=== PATIENT | female | born 2000 | race Caucasian/White ===

== ENCOUNTER 2019-12-15 08:32 | Emergency (ER) | payer BC, SELFPAY ==
[2019-12-15 08:32] VITALS: BP 135/95
[2019-12-15 08:38] VITALS: BP 138/95; PULSE 76; RESP 18; TEMP 36.5; O2SAT 100; BMI 40.7
--- NOTE | 2019-12-15 08:39 | W.ED.CHESTPA ---
HPI - Chest Pain General: Chief Complaint: Chest Pain Stated Complaint: Chest pain/Sob Time Seen by Provider: 12/15/19 08:39 Source: patient Mode of arrival: ambulatory Limitations: no limitations History of Present Illness: HPI narrative: Patient comes in today with complaints of chest pressure and shortness of breath for the last 3 days. Patient also reports some nausea but no vomiting. Patient denies any fever. Patient does report exposure to the flu. Patient looks mildly unwell. Patient looks in no pain. Review of Systems General: Reports: 10 or more systems reviewed and unremarkable except in HPI and below Card: Reports: chest pain PFS ED PFSH: Statuses (acute, chronic, etc) shown below reflect problem list status as previously entered and may not be historically accurate Social History Smoking and tobacco status: never smoked Current gender identity: Female Physical Exam Const: COMMON NORMALS: no apparent distress and oriented x3 GENERAL APPEARANCE: cooperative HENMT: COMMON NORMALS: normocephalic, external ears normal, EAC's normal, TM's normal bilaterally and external nose normal HEAD & SCALP: normal to inspection and normocephalic FACE & SINUS: normal facial exam NOSE: external nose normal GENERAL EAR: hearing not grossly impaired EXTERNAL EAR: Yes external ears normal EXTERNAL AUDITORY CANAL: EAC's normal TYMPANIC MEMBRANE: TM's normal bilaterally MOUTH: oral and palatal mucosa normal THROAT: posterior oropharynx normal Eye: COMMON NORMALS: PERRL and EOMs intact bilaterally PUPIL: Yes PERRL Neck/C-Spine: COMMON NORMALS: full ROM and no lymphadenopathy Lymph: LYMPHATIC: no lymphedema noted Chest: COMMONS NORMALS: inspection of chest normal and palpation of chest normal Resp: COMMON NORMALS: normal respiratory effort and clear to auscultation bilaterally AUSCULTATION: clear to auscultation bilaterally Cardio: COMMON NORMALS: regular rate and regular rhythm RATE: regular rate RHYTHM: regular rhythm GI: COMMON NORMALS: normal to inspection, nondistended, normoactive bowel sounds and non-tender : COMMON NORMALS: Yes no CVA tenderness BLADDER/KIDNEY EXAM: Yes no CVA tenderness Back/Pelvis: COMMON NORMALS: no CVA tenderness and thoracic and lumbar spine normal to inspection Extremity: COMMON NORMALS: normal to inspection GENERAL: No edema Neuro: COMMON NORMALS: oriented x3, moves all extremities and no focal motor deficits Psych: COMMON NORMALS: mental status grossly normal and cooperative Skin: COMMON NORMALS: no rashes or lesions noted GENERAL SKIN EXAM: no rashes or lesions noted Course Vital Signs: Vital signs: Vital Signs Temperature 97.7 F 12/15/19 08:38 Pulse Rate 85 12/15/19 09:34 Respiratory Rate 16 12/15/19 10:00 Blood Pressure 135/95 12/15/19 09:34 Pulse Oximetry 99 12/15/19 09:34 MDM - Chest Pain MDM Narrative: Medical decision making narrative: Patient comes in today with complaints of chest pain. Exam notes respirations are even lungs are clear to auscultation. Abdomen soft nontender. Chest wall is nontender to palpation. Skin is warm and dry color is pink. Vital signs are stable. Differential diagnosis includes ACS, pneumonia, pleurisy, viral syndrome, DVT, PE, anxiety, malingering, gallbladder disease. Laboratory values were normal. Troponin was negative. D-dimer was negative. Chest x-ray was normal. EKG was normal. Patient was given a GI cocktail with minimal relief except for throat pain was resolved. Believe the patient probably has a viral syndrome this might be causing some pleuritic pain. Recommended patient take a dose of dexamethasone and continue with Tylenol and ibuprofen and Zofran for sore supportive care. Patient reports understanding agreed with plan. Lab Data: Labs: Lab Results 12/15/19 12/15/19 12/15/19 Range/Units 08:57 08:57 08:57 WBC 6.7 (4.0-10.0) 10^3/ uL RBC 4.46 (4.1-5.3) 10^6/u L Hgb 13.2 (11.5-15.3) g/dL Hct 41.3 (37.0-47.0) % MCV 92.6 (81-99) fL MCH 29.6 (28.0-34.0) pg MCHC 32.0 (30.0-36.0) g/dL RDW 13.3 (12.1-15.1) % Plt Count 249 (130-400) 10^3/c mm MPV 12.0 H (7.4-10.4) fL Neut % (Auto) 45.6 % Lymph % (Auto) 42.7 % [place] % (Auto) 8.8 % Eos % (Auto) 2.2 % Baso % (Auto) 0.4 % Neut # (Auto) 3.1 (1.8-7.7) 10^3/u L Lymph # (Auto) 2.9 (0.8-4.8) 10^3/u L [place] # (Auto) 0.6 (0.2-0.9) 10^3/u L Eos # (Auto) 0.2 (0.0-0.8) 10^3/u L Baso # (Auto) 0.0 (0.0-0.1) 10^3/u L Nucleated RBC % (a uto) 0 % Nucleated RBCs # 0.0 /100WBC D-Dimer <= 0.27 (0-0.59) ug/mIFE U Sodium 139 (136-145) mmol/L Potassium 4.0 (3.5-5.1) mmol/L Chloride 100 (98-107) mmol/L Carbon Dioxide 24 (22-29) mmol/L Anion Gap 19.0 (5-19) BUN 9 (6-20) mg/dL Creatinine 0.6 (0.5-0.9) mg/dL GFR Calculation 126.2 (90-130) mL/min Glucose 90 (65-115) mg/dL Calcium 9.9 (8.5-10.5) mg/dL Total Bilirubin 0.2 (0.15-1.2) mg/dL AST 26 (0-32) U/L ALT 30 (0-33) U/L Alkaline Phosphata se 64 (35-105) IU/L Troponin T Baselin e (0-10) ng/mL Total Protein 7.2 (6.6-8.7) g/dL Albumin 4.4 (3.5-5.2) g/dL Globulin 2.8 (1.3-4.6) g/dL Urine Color (Yellow) Urine Appearance (CLEAR) Urine pH (5-7) Ur Specific Gravit y (1.005-1.030) Urine Protein (Negative) Urine Glucose (UA) (Normal) Urine Ketones (Negative) Urine Occult Blood (Negative) Urine Nitrate (Negative) Urine Bilirubin (NEGATIVE) Urine Urobilinogen (Negative) mg/dL Ur Leukocyte Shavon ase (Negative) Urine HCG, Qual (Negative) Valproic Acid 104.4 H (50-100) mcg/mL Influenza Type A A g (Negative) POC Influenza B Ag (Negative) 12/15/19 12/15/19 12/15/19 Range/Units 08:57 09:32 10:16 WBC (4.0-10.0) 10^3/ uL RBC (4.1-5.3) 10^6/u L Hgb (11.5-15.3) g/dL Hct (37.0-47.0) % MCV (81-99) fL MCH (28.0-34.0) pg MCHC (30.0-36.0) g/dL RDW (12.1-15.1) % Plt Count (130-400) 10^3/c mm MPV (7.4-10.4) fL Neut % (Auto) % Lymph % (Auto) % [place] % (Auto) % Eos % (Auto) % Baso % (Auto) % Neut # (Auto) (1.8-7.7) 10^3/u L Lymph # (Auto) (0.8-4.8) 10^3/u L [place] # (Auto) (0.2-0.9) 10^3/u L Eos # (Auto) (0.0-0.8) 10^3/u L Baso # (Auto) (0.0-0.1) 10^3/u L Nucleated RBC % (a uto) % Nucleated RBCs # /100WBC D-Dimer (0-0.59) ug/mIFE U Sodium (136-145) mmol/L Potassium (3.5-5.1) mmol/L Chloride (98-107) mmol/L Carbon Dioxide (22-29) mmol/L Anion Gap (5-19) BUN (6-20) mg/dL Creatinine (0.5-0.9) mg/dL GFR Calculation (90-130) mL/min Glucose (65-115) mg/dL Calcium (8.5-10.5) mg/dL Total Bilirubin (0.15-1.2) mg/dL AST (0-32) U/L ALT (0-33) U/L Alkaline Phosphata se (35-105) IU/L Troponin T Baselin e 6 (0-10) ng/mL Total Protein (6.6-8.7) g/dL Albumin (3.5-5.2) g/dL Globulin (1.3-4.6) g/dL Urine Color (Yellow) Urine Appearance (CLEAR) Urine pH (5-7) Ur Specific Gravit y (1.005-1.030) Urine Protein (Negative) Urine Glucose (UA) (Normal) Urine Ketones (Negative) Urine Occult Blood (Negative) Urine Nitrate (Negative) Urine Bilirubin (NEGATIVE) Urine Urobilinogen (Negative) mg/dL Ur Leukocyte Shavon ase (Negative) Urine HCG, Qual Negative (Negative) Valproic Acid (50-100) mcg/mL Influenza Type A A g Negative (Negative) POC Influenza B Ag Negative (Negative) 12/15/19 Range/Units 10:16 WBC (4.0-10.0) 10^3/ uL RBC (4.1-5.3) 10^6/u L Hgb (11.5-15.3) g/dL Hct (37.0-47.0) % MCV (81-99) fL MCH (28.0-34.0) pg MCHC (30.0-36.0) g/dL RDW (12.1-15.1) % Plt Count (130-400) 10^3/c mm MPV (7.4-10.4) fL Neut % (Auto) % Lymph % (Auto) % [place] % (Auto) % Eos % (Auto) % Baso % (Auto) % Neut # (Auto) (1.8-7.7) 10^3/u L Lymph # (Auto) (0.8-4.8) 10^3/u L [place] # (Auto) (0.2-0.9) 10^3/u L Eos # (Auto) (0.0-0.8) 10^3/u L Baso # (Auto) (0.0-0.1) 10^3/u L Nucleated RBC % (a uto) % Nucleated RBCs # /100WBC D-Dimer (0-0.59) ug/mIFE U Sodium (136-145) mmol/L Potassium (3.5-5.1) mmol/L Chloride (98-107) mmol/L Carbon Dioxide (22-29) mmol/L Anion Gap (5-19) BUN (6-20) mg/dL Creatinine (0.5-0.9) mg/dL GFR Calculation (90-130) mL/min Glucose (65-115) mg/dL Calcium (8.5-10.5) mg/dL Total Bilirubin (0.15-1.2) mg/dL AST (0-32) U/L ALT (0-33) U/L Alkaline Phosphata se (35-105) IU/L Troponin T Baselin e (0-10) ng/mL Total Protein (6.6-8.7) g/dL Albumin (3.5-5.2) g/dL Globulin (1.3-4.6) g/dL Urine Color Straw (Yellow) Urine Appearance Clear (CLEAR) Urine pH 6.5 (5-7) Ur Specific Gravit y 1.010 (1.005-1.030) Urine Protein Neg (Negative) Urine Glucose (UA) Norm (Normal) Urine Ketones Negative (Negative) Urine Occult Blood Neg (Negative) Urine Nitrate Negative (Negative) Urine Bilirubin Neg (NEGATIVE) Urine Urobilinogen Norm (Negative) mg/dL Ur Leukocyte Shavon ase Negative (Negative) Urine HCG, Qual (Negative) Valproic Acid (50-100) mcg/mL Influenza Type A A g (Negative) POC Influenza B Ag (Negative) EKG Data^: EKG 1: Attestation: I personally reviewed and interpreted this EKG as follows: (1039, NSR no ectopy, rate 60 and regular, no ectopy, no ST elevation) EKG 2: Attestation: I personally reviewed and interpreted this EKG as follows: (0852, NSR, regular rate and rhythm, 69 bpm, no ectopy or ST elevation) Discharge Plan Discharge Patient Disposition: Home, Self-Care Clinical Impression: Atypical chest pain, Acute viral syndrome Condition: Stable Prescriptions: New ondansetron HCl 4 mg tablet 4 mg PO Q8H PRN (Reason: nausea and vomiting) Qty: 10 RF: 0 ibuprofen 800 mg tablet 800 mg PO Q8H PRN (Reason: pain) Qty: 20 RF: 0 No Action divalproex [Depakote] 500 mg tablet,delayed release (DR/EC) 500 mg PO BID RF: 0 Discharge Orders: Discharge Order (Routine); Ordered 12/15/19 Ordered By: Arturo Rodrigez Referrals: Mario Soliz MD [Primary Care Provider] - Discharge Diet: Usual diet Discharge Activity: Increase activity as tolerated Patient Instructions: Chest Pain - Chest Wall Activity Restrictions/Additional Instructions: Drink plenty of fluids Acetaminophen and ibuprofen for pain Ondansetron for nausea Follow-up with primary care in three days for recheck Return to ER for high fever and increased shortness of breath Coding Level of Care Code 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
--- NOTE | 2019-12-15 08:46 | XR_ITS ---
WS: [id number] Portable AP upright chest, 12/15/2019 Clinical Data: short of breath Comparison: Portable chest, 08/23/2017. Findings: No nodules, masses or effusions are seen. The heart is normal. The pulmonary vascularity is not increased. No pneumonia or pneumothorax is seen. XR/XR chest 1V portable 60005 Impression: Negative chest.
--- NOTE | 2019-12-15 08:46 | ECG_ITS ---
Measurements Intervals [place] Rate: 69 P: 34 [place]: 131 QRS: 19 QRSD: 85 T: 25 QT: 375 QTc: 403 SINUS RHYTHM WITH SINUS ARRHYTHMIA Compared to ECG 08/24/2017 01:57:04 No significant changes Electronically Signed On 12-15-2019 22:16:16 DIRECTOR OF ANALYTICS by Ajith Foote M.D. [id number]
[2019-12-15 09:08] LABS: Basophils % 0.4 %; Eosinophils # 0.2 10^3/uL (0.0-0.8); Eosinophils % 2.2 %; Hematocrit 41.3 % (37.0-47.0); Hemoglobin 13.2 g/dL (11.5-15.3); Lymphocytes # 2.9 10^3/uL (0.8-4.8); Lymphocytes % 42.7 %; Mean Corpuscular Hemoglobin 29.6 pg (28.0-34.0); Mean Corpuscular Volume 92.6 fL (81-99); Monocytes # 0.6 10^3/uL (0.2-0.9); Monocytes % 8.8 %; Neutrophils # 3.1 10^3/uL (1.8-7.7); Neutrophils % 45.6 %; Nucleated Red Blood Cells % 0 %; Platelet Count 249 10^3/cmm (130-400); Red Blood Count 4.46 10^6/uL (4.1-5.3); Red Cell Distribution Width 13.3 % (12.1-15.1); White Blood Count 6.7 10^3/uL (4.0-10.0)
[2019-12-15 09:33] LABS: Alanine Aminotransferase 30 U/L (0-33); Albumin Level 4.4 g/dL (3.5-5.2); Alkaline Phosphatase 64 IU/L (35-105); Aspartate Amino Transferase 26 U/L (0-32); Blood Urea Nitrogen 9 mg/dL (6-20); Calcium 9.9 mg/dL (8.5-10.5); Carbon Dioxide 24 mmol/L (22-29); Chloride 100 mmol/L (98-107); Globulin 2.8 g/dL (1.3-4.6); Glomerular Filtration Rate 126.2 mL/min (90-130); Glucose 90 mg/dL (65-115); Sodium 139 mmol/L (136-145); Total Bilirubin 0.2 mg/dL (0.15-1.2); Total Protein 7.2 g/dL (6.6-8.7)
[2019-12-15 09:34] VITALS: BP 135/95; PULSE 85; RESP 16; O2SAT 99
[2019-12-15 09:35] LABS: Troponin(5th) Baseline 6 ng/mL (0-10)
[2019-12-15 10:00] VITALS: RESP 16
[2019-12-15 10:05] LABS: Valproic Acid Level 104.4 mcg/mL (50-100)
[2019-12-15 10:10] LABS: D Dimer <= 0.27 ug/mIFEU (0-0.59)
[2019-12-15 10:15] LABS: Influenza A by IFA Negative (Negative); Influenza B by IFA Negative (Negative)
[2019-12-15 10:19] LABS: Add Urine Microscopic? NO
[2019-12-15 10:29] LABS: Bilirubin Urine Neg (NEGATIVE); Blood Urine Neg (Negative); Glucose Urine UA Norm (Normal); Ketones Urine Negative (Negative); Leukocyte Esterase Urine Negative (Negative); Nitrate Urine Negative (Negative); Protein Urine Neg (Negative); Urine Appearance Clear (CLEAR); Urine Color Straw (Yellow); Urobilinogen Urine Norm (Negative); pH Urine 6.5 (5-7)
[2019-12-15] MEDS: dexamethasone 10 mg/mL INJ IM (10:53)
[2019-12-15] MEDS: ondansetron 4 MG Tablet PO (10:53)
[2019-12-15 10:55] VITALS: BP 112/81; PULSE 73; RESP 16; O2SAT 96
--- NOTE | 2019-12-15 14:46 | ECG_ITS ---
Measurements Intervals [place] Rate: 60 P: 26 ND: 127 QRS: 35 QRSD: 89 T: 35 QT: 405 QTc: 407 SINUS RHYTHM Compared to ECG 08/24/2017 01:57:04 No significant changes Electronically Signed On 12-15-2019 22:18:58 RECEIVING AND PROCESSING SUPERVISOR by Ajith Foote M.D. [id number]
== END 2019-12-15 10:55 | disposition home or self-care (01) ==
PROVIDERS: Emergency Provider Nurse Practitioner Family; Family Provider Family Medicine; PCP Family Medicine
DX: R07.89 Other chest pain (principal); B34.9 Viral infection, unspecified
CPT/HCPCS: 71045; 80053; 80164; 81003; 81025; 84484; 85025; 85378; 87804; 93005; 96372; 99283; A9270; J1100; Q0162

== ENCOUNTER → 2020-03-11 15:20 | Outpatient (BNVA) | payer BC, SELFPAY | PROVIDERS: Family Provider Family Medicine; PCP Family Medicine; Visit Provider Specialist | DX: G40.309 Generalized idiopathic epilepsy and epileptic syndromes, not intractable, without status epilepticus (principal) | CPT/HCPCS: 99213 ==

== ENCOUNTER → 2020-07-02 10:41 | Outpatient (BNVA) | payer BC, SELFPAY | PROVIDERS: Family Provider Family Medicine; PCP Family Medicine; Visit Provider Specialist | DX: G40.A09 Absence epileptic syndrome, not intractable, without status epilepticus (principal) | CPT/HCPCS: 99214 ==

== ENCOUNTER 2020-07-10 10:01 | Outpatient (CLI) | payer BC, MEDICAID, SELFPAY ==
--- NOTE | 2020-07-10 10:07 | US_ITS ---
WS: [id number] EARLY OBSTETRICAL ULTRASOUND (<14 WEEKS). HISTORY: DATING COMPARISON: None available. There is an elongated intrauterine gestational sac. Sac is elongated towards the cervix and misshapen ed. Gestational sac mean diameter of 3.3 cm corresponds to a gestational age of 10 weeks and 2 days. There is no identifiable intrauterine pole or cardiac activity. There are a few septations with in the sac which are probably an abnormal yolk sac and amnion. The cervix is closed. Thick wall hypoechoic mass in the LEFT ovary is probably a corpus luteum cyst m easuring 2.1 x 2.1 x 1.7 cm. Mild increased peripheral vascularity. US/US OB <=14 wk fetus w transvag IMPRESSION: 1. No intrauterine gestational sac identified. 2. Abnormal gestational sac is elongated. Mean sac diameter corresponds to ges tation of 10 weeks and 2 days. Most consistent with anembryonic demise. 3. LEFT ovarian hypoechoic mass is probably a corpus luteum. Without visualizi ng an intrauterine gestation cannot completely exclude ectopic . Corre late with decreasing beta hCG levels.
--- NOTE | 2020-07-10 10:07 | US_ITS ---
WS: [id number] RIGHT UPPER QUADRANT ULTRASOUND HISTORY: LIVER MASS COMPARISON: CT 12/08/2015 and MRI 12/25/2015 Liver: 13.3 cm in length. Liver is normal size. There is mild increased echogenicity in the posterior RIGHT lobe of the liver which corresponds to the mass which is been previous the described. Margins are poorly defined but this mass measures approximately 8.4 x 5.0 x 5.3 cm. Gallbladder: Normally distended gallbladder with no stones or wall thickening. CBD: 0.6 cm Pancreas: Normal size and echogenicity. Right kidney: 11.6 cm in length. Normal size and echogenicity. No hydronephrosis. Aorta and IVC: Unremarkable abdominal aorta and IVC. No ascites. US/US gall bladder 29620 IMPRESSION: 1. Large ill-defined hyperechoic mass in the RIGHT lobe of the liver. As this mass is ill-defined measurements are difficult to obtain. Mass measures at leas t 8.4 x 5.0 x 5.3 cm. Present since 2015 with no obvious enlargement. 2. Negative gallbladder.
== END 2020-07-10 10:02 | disposition home or self-care (01) ==
LOC: US 10:02
PROVIDERS: PCP Family Medicine; Visit Provider Family Medicine
DX: K76.89 Other specified diseases of liver (principal); O28.3 Abnormal ultrasonic finding on antenatal screening of mother
CPT/HCPCS: 76705; 76801; 76817

== ENCOUNTER 2020-08-28 00:51 | Emergency (ER) | payer BC, MEDICAID, SELFPAY ==
[2020-08-28 00:56] VITALS: BP 144/92; PULSE 75; RESP 16; TEMP 36.2; O2SAT 100; BMI 39.3
--- NOTE | 2020-08-28 01:06 | W.ED.PREGNAN ---
HPI - General: Chief complaint: Vaginal Bleeding Stated complaint: vaginal bleeding Time Seen by Provider: 08/28/20 00:52 Source: patient Mode of arrival: ambulatory Limitations: no limitations History of Present Illness: HPI Narrative: 20-year-old female who states she has been having lower abdominal cramping along with vaginal bleeding over the last 3 to 4 days. Patient had her blood drawn yesterday at Dr. Soliz does not have the results. She had a early in July and had an ultrasound and showed an empty gestational sac. She states that she started having bleeding 3 to 4 days ago and is increased in heaviness and believes that she may be still her again. She denies any vomiting or diarrhea. Denies any lightheadedness. Complaint: abdominal pain and vaginal bleeding Onset (ago): day(s) Associated symptoms: Reports abdominal pain; Deny headache(s) Review of Systems Const: Denies: fever(s), chills, body aches or change in appetite Eyes: Denies: blurry vision or eye discomfort ENMT: Denies: throat pain or dental pain Card: Denies: chest pain Resp: Denies: dyspnea GI: Reports: abdominal pain : Reports: vaginal bleeding Musc: Denies: neck pain or back pain Skin/Breast: Denies: rash Neuro: Denies: headache(s) Psych: Denies: depression Jose/Lymph: Denies: easy bruising All/Imm: Denies: urticaria PFSH ED PFSH: Family History Other Diabetes Social History Smoking and tobacco status: never smoked Current gender identity: Female Physical Exam Const: COMMON NORMALS: no acute distress, patient oriented x3 and healthy appearing HENMT: COMMON NORMALS: normocephalic and atraumatic HEAD & SCALP: normocephalic and atraumatic Eye: COMMON NORMALS: Equal, round and reactive pupils present and EOMs intact bilaterally PUPIL: Yes Equal, round and reactive pupils present Neck/C-Spine: COMMON NORMALS: full ROM and supple Chest: COMMONS NORMALS: normal inspection of the chest and normal palpation of entire chest wall Resp: COMMON NORMALS: normal respiratory effort, No retractions, No use of accessory muscles and clear to auscultation bilaterally AUSCULTATION: clear to auscultation bilaterally Cardio: COMMON NORMALS: regular rate, regular rhythm and No murmurs present (Cardio) RATE: regular rate RHYTHM: regular rhythm GI: COMMON NORMALS: Normal to inspection, nondistended, normoactive bowel sounds present, Soft to palpation, non-tender and no masses PALPATION: Yes Soft to palpation Extremity: COMMON NORMALS: normal to inspection and full ROM Neuro: COMMON NORMALS: patient oriented x3, moves all extremities and no focal motor deficits Psych: COMMON NORMALS: mental status grossly normal, Normal thought process present and cooperative THOUGHT PROCESS: Normal thought process present Skin: COMMON NORMALS: no rashes or lesions noted and no wounds GENERAL SKIN EXAM: no rashes or lesions noted Course Vital Signs: Vital signs: Vital Signs Temperature 97.2 F L 08/28/20 00:56 Pulse Rate 75 08/28/20 00:56 Respiratory Rate 16 08/28/20 00:56 Blood Pressure 144/92 08/28/20 00:56 Pulse Oximetry 100 08/28/20 00:56 MDM - OB/Uterine Contractions MDM Narrative: Medical decision making narrative: Patient presents with a likely miscarriage. Patient's ultrasound showed no ectopic. Patient is well-appearing here and has no excessive bleeding. She is stable for discharge to follow-up with her PCP in 2 to 4 days and return if worsening. Lab Data: Labs: Lab Results 08/28/20 08/28/20 08/28/20 Range/Units 01:35 01:35 01:35 WBC 11.0 H (4.0-10.0) 10^3/ uL RBC 4.40 (4.1-5.3) 10^6/u L Hgb 14.0 (11.5-15.3) g/dL Hct 41.7 (37.0-47.0) % MCV 94.8 (81-99) fL MCH 31.8 (28.0-34.0) pg MCHC 33.6 (30.0-36.0) g/dL RDW 11.9 L (12.1-15.1) % Plt Count 268 (130-400) 10^3/c mm MPV 11.6 H (7.4-10.4) fL Neut % (Auto) 63.0 % Lymph % (Auto) 28.6 % [place] % (Auto) 5.6 % Eos % (Auto) 2.0 % Baso % (Auto) 0.5 % Neut # (Auto) 6.93 (1.8-7.7) 10^3/u L Lymph # (Auto) 3.1 (0.8-4.8) 10^3/u L [place] # (Auto) 0.6 (0.2-0.9) 10^3/u L Eos # (Auto) 0.2 (0.0-0.8) 10^3/u L Baso # (Auto) 0.1 (0.0-0.1) 10^3/u L Nucleated RBC % (a uto) 0 % Nucleated RBCs # 0.0 /100WBC Ser , Abigail i-Qnt 01607.00 mIU/mL Rho(D) Type Positive Imaging Data^: US OB: Attestation: I personally reviewed and interpreted this imaging study as follows: My impression: Gestational sac noted with no definite IUP. No signs of ectopic . Discharge Plan Discharge Patient Disposition: Home Clinical Impression: Threatened Condition: Stable Prescriptions: [place] 5-325 mg tablet 1 tab PO Q6H PRN (Reason: pain) Qty: 14 RF: 0 No Action divalproex [Depakote] 500 mg tablet,delayed release (DR/EC) 500 mg PO BID Qty: 180 RF: 3 Discharge Orders: Discharge Order (Routine); Ordered 08/28/20 Ordered By: Lisa Escamilla Referrals: Mario Soliz MD [Primary Care Provider] - 1-3 days Discharge Diet: Advance as tolerated Discharge Activity: Resume usual activity Patient Instructions: Threatened Miscarriage (ED) Stand Alone Forms: Work/School Release Coding Level of Care Code ED Reading Professor for Chg Fwd Exam Comprehensive
[2020-08-28] MEDS: HYDROcodone-acetaminophen 7.5-325 mg Tablet 1 TAB PO (02:07)
[2020-08-28 02:24] LABS: Basophils # 0.1 10^3/uL (0.0-0.1); Basophils % 0.5 %; Eosinophils # 0.2 10^3/uL (0.0-0.8); Hematocrit 41.7 % (37.0-47.0); Lymphocytes # 3.1 10^3/uL (0.8-4.8); Lymphocytes % 28.6 %; Mean Corpuscular HGB Conc 33.6 g/dL (30.0-36.0); Mean Corpuscular Hemoglobin 31.8 pg (28.0-34.0); Mean Corpuscular Volume 94.8 fL (81-99); Mean Platelet Volume 11.6 fL (7.4-10.4); Monocytes # 0.6 10^3/uL (0.2-0.9); Monocytes % 5.6 %; Neutrophils # 6.93 10^3/uL (1.8-7.7); Nucleated Red Blood Cells % 0 %; Platelet Count 268 10^3/cmm (130-400); Red Cell Distribution Width 11.9 % (12.1-15.1)
--- NOTE | 2020-08-28 02:53 | US_ITS ---
WS: [id number] ULTRASOUND PELVIS TECHNIQUE: Transabdominal. CLINICAL INFORMATION: threatened miscarriage LMP: 04/25/2020 : No. COMPARISON: July 10, 2020 FINDINGS: Fluid within the endometrial and endocervical canal. Uterus Orientation: Anteverted. Size: 5.7 cm x 13.7 cm x 6.8 cm Masses: None. Cervix: Fluid in the endocervical canal Endometrium: Thickened Endometrium thickness: 23 mm. Adnexa: Normal. Right ovary size: 3.2 cm x 1.8 cm x 1.2 cm. Right ovary volume: 3.6 ccm3 Left ovary size: 4.5 cm x 2.6 cm x 1.9 cm. Left ovary volume: 11.3 ccm3 Free fluid: None. Other findings: None. US/ OB limited [id number] IMPRESSION: 1. Fluid in the uterus and endocervical canal. 2. Thickened endometrium measuring 23 mm. 3. Adnexa are normal. 4. No free fluid in the cul-de-sac.
[2020-08-28 04:14] VITALS: BP 121/78; PULSE 74; RESP 16; O2SAT 100
== END 2020-08-28 04:15 | disposition home or self-care (01) ==
PROVIDERS: Emergency Provider Emergency Medicine; PCP Family Medicine
DX: O20.0 Threatened abortion (principal); Z3A.00 Weeks of gestation of pregnancy not specified
CPT/HCPCS: 12345; 76801; 76815; 84702; 85025; 99283

== ENCOUNTER 2020-08-29 15:28 | Day surgery (SDC) | payer BC, MEDICAID, SELFPAY ==
[2020-08-29] VITALS (10 sets, daily range): BP systolic 109–134; BP diastolic 54–75; PULSE 79–120; RESP 14–24; TEMP 36.4–37.6; O2SAT 96–100; BMI 39.3
--- NOTE | 2020-08-29 16:03 | W.ED.PREGNAN ---
HPI - General: Chief complaint: Vaginal Bleeding Stated complaint: DIFF FOLLOWING MISCARRIAGE/6 WKS AGO Time Seen by Provider: 08/29/20 15:54 History of Present Illness: HPI Narrative: 20-year-old female patient presents to the emergency department with complaints of continued vaginal pressure and bleeding. Recently evaluated in the emergency department 08/28/2020, Diagnosis threatened AB, pelvic ultrasound revealed thickened endometrium, fluid in the cervix and Endo cervical canal.She reports continued bleeding, going through 2 pads an hour. States she feels that something is in there and she cannot get it out. 1, para 0 living 0 AB 1 MD Complaint: vaginal bleeding Onset (ago): day(s) (2) Pain Consistency: intermittent Location: pelvis Severity: mild Severity scale (1-10): 4 Quality: Cramping and Aching Radiation: pelvis Relieving factors: none Exacerbating factors: none Vaginal bleeding: heavy Date of Last Menstrual Period: 04/25/20 Patient : No Associated symptoms: Deny abdominal pain, dysuria, headache(s), nausea or vomiting Review of Systems General: Reports: 10 or more systems reviewed and unremarkable except in HPI and below Const: Denies: fever(s), chills or diaphoresis Eyes: Denies: blurry vision or eye redness ENMT: Denies: throat pain, dental pain or disequilibrium Card: Denies: chest pain, palpitations or irregular heart rhythm Resp: Denies: dyspnea, productive cough, non-productive cough or wheezing GI: Denies: abdominal pain, nausea or vomiting : Reports: vaginal bleeding and pelvic pain; Denies: flank pain, difficulty voiding or dysuria Musc: Denies: back pain Skin/Breast: Denies: rash or pruritus Neuro: Denies: headache(s), weakness in extremities or behavioral changes Jose/Lymph: Denies: easy bruising PFSH ED PFSH: Medical History Epilepsy Reports being diagnosed with epilepsy. has not had a seizure since December 2018. She is managed by Dr. Chi. Surgical History No pertinent past surgical history Family History Other Diabetes Social History Smoking and tobacco status: never smoked Alcohol intake: never Current gender identity: Female Female Reproductive History: Date of last menstrual period: 04/25/20 Physical Exam Const: COMMON NORMALS: no acute distress, patient oriented x3, healthy appearing and alert GENERAL APPEARANCE: cooperative, comfortable and well hydrated HENMT: COMMON NORMALS: normocephalic, Normal external nose present and moist oral mucous membranes HEAD & SCALP: normocephalic NOSE: Normal external nose present Eye: COMMON NORMALS: Equal, round and reactive pupils present and EOMs intact bilaterally GENERAL EYE: appearance normal, both eyes and all related structures PUPIL: Yes Equal, round and reactive pupils present Neck/C-Spine: COMMON NORMALS: full ROM and no lymphadenopathy GENERAL: Yes normal visual inspection and Yes trachea midline CERVICAL SPINE: Yes cervical ROM normal Lymph: LYMPHATIC: no lymphadenopathy noted Chest: COMMONS NORMALS: normal inspection of the chest Resp: COMMON NORMALS: normal respiratory effort and clear to auscultation bilaterally AUSCULTATION: clear to auscultation bilaterally Cardio: COMMON NORMALS: regular rhythm, S1 normal heart sound present and S2 normal heart sound present RHYTHM: regular rhythm HEART SOUNDS: S1 normal heart sound present and S2 normal heart sound present GI: COMMON NORMALS: Soft to palpation and non-tender INSPECTION: Yes normal to inspection PALPATION: Yes Soft to palpation : COMMON NORMALS: Yes no CVA tenderness and Yes normal external appearance BLADDER/KIDNEY EXAM: Yes no CVA tenderness SPECULUM EXAM - VAGINA: Yes tissue present in vagina SPECULUM EXAM - CERVIX: Yes Cervical os open, Yes Tissue present in the cervical os and Yes Cervical bleeding (scant) OB/EXTERNAL & SPECULUM: tissue present in vagina and Cervical os open Back/Pelvis: COMMON NORMALS: no CVA tenderness and thoracic and lumbar spine normal to inspection Extremity: COMMON NORMALS: normal to inspection and capillary refill normal Neuro: COMMON NORMALS: patient oriented x3 and no focal motor deficits SENSORIUM/ORIENTATION: Yes alert Psych: COMMON NORMALS: mental status grossly normal, Normal thought process present and cooperative ACTIVITY/MOTOR BEHAVIOR: Yes appropriate eye contact THOUGHT PROCESS: Normal thought process present Skin: COMMON NORMALS: no rashes or lesions noted and turgor normal GENERAL SKIN EXAM: no rashes or lesions noted and turgor normal Course ED course: Dr Loera in the ED 1730 - plan for pt to go to surgery for OP D & C Consultations: Consultation #1: Dr Soliz - advised to contact CURING SUPERVISOR on-call as patient may need D&C, Time: 16:50 Consultation #2: Dr Loera-Case discussed with Dr. Loera serology and ultrasound reports reviewed, advised patient may need D&C, agrees to come see patient in emergency department. Time: 17:05 Vital Signs: Vital signs: Vital Signs Temperature 98.2 F 08/29/20 19:58 Pulse Rate 93 08/29/20 20:13 Respiratory Rate 16 08/29/20 19:58 Blood Pressure 123/65 08/29/20 20:13 Pulse Oximetry 96 08/29/20 20:13 MDM - OB/Uterine Contractions Lab Data: Labs: Lab Results 08/29/20 08/29/20 08/29/20 Range/Units 16:10 16:10 16:10 WBC 9.3 (4.0-10.0) 10^3/ uL RBC 4.40 (4.1-5.3) 10^6/u L Hgb 13.7 (11.5-15.3) g/dL Hct 40.6 (37.0-47.0) % MCV 92.3 (81-99) fL MCH 31.1 (28.0-34.0) pg MCHC 33.7 (30.0-36.0) g/dL RDW 11.9 L (12.1-15.1) % Plt Count 255 (130-400) 10^3/c mm MPV 11.0 H (7.4-10.4) fL Neut % (Auto) 64.3 % Lymph % (Auto) 27.7 % [place] % (Auto) 5.4 % Eos % (Auto) 1.8 % Baso % (Auto) 0.5 % Neut # (Auto) 6.00 (1.8-7.7) 10^3/u L Lymph # (Auto) 2.6 (0.8-4.8) 10^3/u L [place] # (Auto) 0.5 (0.2-0.9) 10^3/u L Eos # (Auto) 0.2 (0.0-0.8) 10^3/u L Baso # (Auto) 0.1 (0.0-0.1) 10^3/u L Nucleated RBC % (a uto) 0 % Nucleated RBCs # 0.0 /100WBC Sodium 138 (136-145) mmol/L Potassium 4.0 (3.5-5.1) mmol/L Chloride 102 (98-107) mmol/L Carbon Dioxide 24 (22-29) mmol/L Anion Gap 16.0 (5-19) BUN 8 (6-20) mg/dL Creatinine 0.6 (0.5-0.9) mg/dL GFR Calculation 125.0 (90-130) mL/min Glucose 83 (65-115) mg/dL Calculated Osmolal ity 283 L (285-295) mOsm/k g Calcium 10.1 (8.5-10.5) mg/dL Total Bilirubin 0.2 (0.15-1.2) mg/dL AST 16 (0-32) U/L ALT 16 (0-33) U/L Alkaline Phosphata se 76 (35-105) IU/L Total Protein 7.1 (6.6-8.7) g/dL Albumin 4.6 (3.5-5.2) g/dL Globulin 2.5 (1.3-4.6) g/dL Ser , Abigail i-Qnt 3788.00 mIU/mL Discharge Plan Discharge Clinical Impression: Spontaneous in first trimester, Missed Condition: Stable Discharge Orders: Discharge Order (Routine); Ordered 08/29/20 Ordered By: Ashish Loera Discharge Date/Time: 08/29/20 18:33 Coding Level of Care Code ED Technical Account Executive for Rishig Fwd Exam Comprehensive
--- NOTE | 2020-08-29 16:14 | USR_ITS ---
PROCEDURE INFORMATION: Exam: US Pelvis Complete, Transabdominal and US Pelvis, Transvaginal and US Duplex Artery and Vein, Ovaries, Complete Exam date and time: 08/29/2020 5:00 PM Age: 20 years old Clinical indication: Other: Miscarriage of blighted ovu; Patient HX: Per PT. Dx'd with blighted ovum in sept. Now losing the products. ; Additional info: Miss ab - spontaneous TECHNIQUE: Imaging protocol: Real-time transabdominal and transvaginal pelvic ultrasound (complete) with image documentation. Transvaginal imaging was used for better evaluation of the endometrium, adnexa, and/or cervix. Real-time duplex ultrasound scan of the arterial and venous flow of the ovaries with B-mode, color Doppler flow and spectral waveform analysis. COMPARISON: US pelvic with transvaginal 04/05/2019 8:40 AM FINDINGS: Uterus/cervix: The uterus measures 9.5 x 5.5 x 7.3 cm. The endometrial stripe measures 2.76 mm in thickness. The cervix is open and measuring 3.3 cm in length. Heterogeneous debris is noted in the endometrial cavity. Right adnexa: The right ovary measures 1.5 x 2.8 x 2.4 cm. The right ovary is unremarkable with subcentimeter cysts. Doppler evaluation of the right ovary demonstrates good arterial and venous flow. No right ovarian torsion. Left adnexa: The left ovary measures 2.7 x 1.8 x 2.5 cm. The left ovary is unremarkable with subcentimeter cysts. Doppler evaluation left ovary demonstrates good arterial and venous flow. Intraperitoneal space: No intraperitoneal free fluid. Urinary bladder: Normal. US/US pelvic with transvaginal IMPRESSION: 1. Thickened heterogeneous endometrium with debris in the endometrial cavity. The cervix is open. Findings are consistent with the history of miscarriage of blighted ovum. 2. Unremarkable ovaries. Unremarkable ovarian Doppler.
[2020-08-29 16:25] LABS: Basophils # 0.1 10^3/uL (0.0-0.1); Basophils % 0.5 %; Eosinophils # 0.2 10^3/uL (0.0-0.8); Eosinophils % 1.8 %; Hematocrit 40.6 % (37.0-47.0); Hemoglobin 13.7 g/dL (11.5-15.3); Lymphocytes # 2.6 10^3/uL (0.8-4.8); Lymphocytes % 27.7 %; Mean Corpuscular HGB Conc 33.7 g/dL (30.0-36.0); Mean Corpuscular Hemoglobin 31.1 pg (28.0-34.0); Mean Corpuscular Volume 92.3 fL (81-99); Monocytes # 0.5 10^3/uL (0.2-0.9); Monocytes % 5.4 %; Neutrophils % 64.3 %; Nucleated Red Blood Cells % 0 %; Platelet Count 255 10^3/cmm (130-400); Red Cell Distribution Width 11.9 % (12.1-15.1); White Blood Count 9.3 10^3/uL (4.0-10.0)
[2020-08-29 16:40] LABS: Alanine Aminotransferase 16 U/L (0-33); Albumin Level 4.6 g/dL (3.5-5.2); Alkaline Phosphatase 76 IU/L (35-105); Aspartate Amino Transferase 16 U/L (0-32); Blood Urea Nitrogen 8 mg/dL (6-20); Calcium 10.1 mg/dL (8.5-10.5); Carbon Dioxide 24 mmol/L (22-29); Chloride 102 mmol/L (98-107); Globulin 2.5 g/dL (1.3-4.6); Glucose 83 mg/dL (65-115); Osmolality Calculated 283 mOsm/kg (285-295); Sodium 138 mmol/L (136-145); Total Bilirubin 0.2 mg/dL (0.15-1.2); Total Protein 7.1 g/dL (6.6-8.7)
[2020-08-29] MEDS: morphine 4 mg/mL SDV 1 mL 2 MG IVP (17:23)
--- NOTE | 2020-08-29 18:07 | PM.HP ---
Providers/Chief Complaint Primary Care Provider: Mario Soliz MD Chief Complaint: DIFF FOLLOWING MISCARRIAGE/6 WKS AGO History of Present Illness Yasmin Bacon is a 20 year old female, 1, para 0 with an LMP of 04/25/2020, which placed her at approximately 18 weeks gestation. She presented to the ER due to pain and bleeding. She reports that she had a first positive test on June 01. She stated that the was confirmed at the health department approximately 1 week later. She denied any problems until Wednesday, 08/26, when she started having light bleeding. She stated that it significantly worsened on Wednesday when she developed cramping and worsening bleeding. She was evaluated in the ER on Wednesday, 08/28, where she was diagnosed with a empty gestational sac (blighted ovum). She was sent home at that time with [place] for the pain with the plan to follow-up with her PCP. She returned to the ER today with worsening bleeding and cramping. She denies having passed anything other than blood and clots. She denied any lightheadedness or dizziness. On evaluation in the ER, ultrasound was performed, which showed no sac in the uterus, but thickened echogenic material within the lower uterine segment. The ER provider on pelvic exam noted material present within the cervix, but was unable to remove it. As a result I was consulted for further evaluation and possible surgical treatment. Review of Systems Const: Denies: fever(s) or chills ENMT: Denies: throat pain or nasal congestion Card: Denies: chest pain, palpitations, swelling of feet/ankles or lightheadedness Resp: Denies: dyspnea, productive cough, non-productive cough or wheezing GI: Reports: abdominal pain; Denies: nausea, vomiting, diarrhea or constipation : Reports: vaginal bleeding; Denies: dysuria Neuro: Denies: headache(s), dizziness or seizure-like activity Psych: Denies: anxiety or depression Endo: Denies: cold intolerance or heat intolerance Jose/Lymph: Denies: easy bruising or easy bleeding Medications/Allergies Home Medications Medication Instructions Recorded Confirmed Last Taken Type divalproex 500 mg tablet,delayed 500 mg PO BID #180 tab 03/11/20 07/02/20 Unknown Rx release hydrocodone-acetaminophen [[place]] 1 tab PO Q6H PRN #14 tab 08/28/20 Unknown Rx Allergies Allergy/AdvReac Type Severity Reaction Status Date / Time No Known Allergies Allergy Verified 07/02/20 11:21 PFSH Acute PFSH: Medical History Epilepsy Reports being diagnosed with epilepsy. States has not had a seizure since December 2018. She is managed by Dr. Chi. Surgical History No pertinent past surgical history Family History Other Diabetes Social History Smoking and tobacco status: never smoked Alcohol intake: never Substance/Drug Use: never Current gender identity: Female Female Reproductive History: Date of last menstrual period: 04/25/20 Vitals/I&O/Wt Last Vital Signs Temp 97.5 F L 08/29/20 15:45 Pulse 103 H 08/29/20 15:45 Resp 16 08/29/20 17:23 BP 121/75 08/29/20 15:45 Pulse Ox 98 08/29/20 15:45 Weight last 48 hrs Weight 215 lb Physical Exam Const: COMMON NORMALS: no acute distress, average body habitus, alert and well nourished GENERAL APPEARANCE: well developed ORIENTATION/CONSCIOUSNESS: Yes oriented to person, Yes oriented to place and Yes oriented to time Neck/C-Spine: COMMON NORMALS: Thyroid normal GENERAL: Yes trachea midline THYROID: Thyroid normal Resp: COMMON NORMALS: normal respiratory effort and clear to auscultation bilaterally AUSCULTATION: clear to auscultation bilaterally Cardio: COMMON NORMALS: regular rate, regular rhythm, No gallops present (Cardio), No murmurs present (Cardio) and No rub (Cardio) RATE: regular rate RHYTHM: regular rhythm GI: COMMON NORMALS: Soft to palpation, No hepatosplenomegaly present and no masses AUSCULTATION: Yes normoactive bowel sounds PALPATION: Yes Soft to palpation, Yes Tenderness to palpation present (GI) (Mild suprapubic tenderness), Yes No hepatosplenomegaly present and No Hernia present Extremity: COMMON NORMALS: no clubbing, cyanosis or edema and no calf tenderness Neuro: SENSORIUM/ORIENTATION: Yes alert, Yes oriented to person, Yes oriented to place and Yes oriented to time Psych: COMMON NORMALS: normal affect MOOD & AFFECT: Yes euthymic mood Data : 08/29/20 16:10 08/29/20 16:10 Other Labs: Quantitative hCG 08/28/2020: 16,177 08/29/2020: 3,788 US OB: I personally reviewed and interpreted this imaging study as follows: My impression: 08/28/2020: Abdominal pelvic ultrasound Irregular shaped sac extending into the lower uterine segment. 08/29/2020: Abdominal pelvic ultrasound Sac is no longer present, but thickened echogenic material present in the lower uterine segment. A&P Assessment and plan (1) Incomplete : Patient originally had a blighted ovum on 08/28/2020. On ultrasound today, sac has collapsed with thickened material present within the lower uterine segment and material seen in the cervix. I discussed with the patient the findings on ultrasound. I discussed with her that there were 3 options to consider in this situation. These are to continue to wait and allow things to finish passing on their own, use medications to finish the passage of the , or proceed to dilation and curettage to surgically empty the uterus. I discussed with her the risks associated with these different options. Expectations regarding pain, cramping, and bleeding were discussed. Potential need for D&C anyway if not everything passes either on its own or with the medication was discussed. Specific risks of the surgery including bleeding, infection, and uterine perforation were discussed. Questions were answered. Patient wishes to proceed with surgical treatment. Patient to be prepared for a dilation and curettage with suction. Status: Acute Attestations Medical Necessity Statement*: Plan is for patient be discharged home after surgery completed. Coding Level of Care Code Acute Drier Take Off Tender for Yasmani Burnett Diagnoses Incomplete O03.4
--- NOTE | 2020-08-29 18:40 | P.ANESASSM_ITS ---
Pre-Anesthetic Assessment Pre-Anesthetic Assessment: Height/Weight: Height 1.57 m Weight 97.522 kg Temp Pulse Resp BP Pulse Ox 97.5 F L 103 H 16 121/75 98 08/29/20 15:45 08/29/20 15:45 08/29/20 17:23 08/29/20 15:45 08/29/20 15:45 Proposed Procedure: D&C Familial anesthetic complications: denies familial problems, patient has never had anesthesia Was Beta Frances taken within 24 hours: N/A Last intake: small snack bag of chips at 1:00 and nothing to drink Last Intake: 13:00 Social: Social History: No alcohol and No tobacco Exam: Pre-Anes Outpt Exam: alert, oriented x 3 and clear to auscultation bilaterally Airway: Submandibular: WNL Cervical ROM: WNL MP: 1 Pulmonary: Pulmonary: None reported CV/HEM: CV/HEM: None reported : : None reported Hepatic: Hepatic: None reported GI: GI: None reported Metabolic: Metabolic: None reported Musc/skel: Musc/skel: None reported Neuropsych: Neuropsych: Seizure (dec 2018 grand mal takes depekote ) Anesthetic Plan: ASA status: 2 Anesthesia: Anesthesia Evaluation and General PFSH Anesthesia PFSH: Medical History Epilepsy Reports being diagnosed with epilepsy. States has not had a seizure since December 2018. She is managed by Dr. Chi. Surgical History No pertinent past surgical history Family History Other Diabetes Social History Smoking and tobacco status: never smoked Alcohol intake: never Substance/Drug Use: never Current gender identity: Female Female Reproductive History: Date of last menstrual period: 04/25/20 Data Anesthesia CBC & Chem 7: 08/29/20 16:10 08/29/20 16:10 Other Labs: Laboratory Results - last 48 hr 08/29/20 08/29/20 08/29/20 16:10 16:10 16:10 WBC 9.3 RBC 4.40 Hgb 13.7 Hct 40.6 MCV 92.3 MCH 31.1 MCHC 33.7 RDW 11.9 L Plt Count 255 MPV 11.0 H Neut % (Auto) 64.3 Lymph % (Auto) 27.7 [place] % (Auto) 5.4 Eos % (Auto) 1.8 Baso % (Auto) 0.5 Neut # (Auto) 6.00 Lymph # (Auto) 2.6 [place] # (Auto) 0.5 Eos # (Auto) 0.2 Baso # (Auto) 0.1 Nucleated RBC % (auto) 0 Nucleated RBCs # 0.0 Sodium 138 Potassium 4.0 Chloride 102 Carbon Dioxide 24 Anion Gap 16.0 BUN 8 Creatinine 0.6 GFR Calculation 125.0 Glucose 83 Calculated Osmolality 283 L Calcium 10.1 Total Bilirubin 0.2 AST 16 ALT 16 Alkaline Phosphatase 76 Total Protein 7.1 Albumin 4.6 Globulin 2.5 Ser , Semi-Qnt 3788.00 Cardiac Studies: No Data to Display
--- NOTE | 2020-08-29 19:20 | P.OP_ITS ---
Operative Report Date of procedure: August 29, 2020 Pre-op Diagnosis: Incomplete at 18 weeks Post-op Diagnosis: Incomplete at 18 weeks Procedure Done: Dilation and curettage with suction Specimens removed/disposition: Products of conception Surgeon: Ashish Loera Disc Pad Grinding Machine Feeder: None Anesthesia: General Estimated blood loss (mL): 100 IV fluids (mL): 600 Complications: None Findings: Sac protruding through the cervix into the vagina. It was collapsed. Cervix was 1-1/2 cm dilated. Brief History: Patient is a 20-year-old white female 1, para 0 with an LMP of 04/25/2020, which placed her at approximately 18 weeks gestation. She had been diagnosed with a blighted ovum based on prior ultrasound. She was seen on 08/28 and found to have an empty, collapsing sac extending down into the lower uterine segment. She continued to bleed heavily after that at with more cramping and return to the ER this afternoon. Ultrasound showed no sac in the uterus, but thickened echogenic material was seen in the cervix area. Exam by the ER staff had revealed material coming through the cervix but could not be removed. Treatment options were discussed with her and she wished to proceed with dilation and curettage. Procedure: Patient was taken to the operating room where general anesthesia was obtained. She was prepped and draped in the usual sterile fashion in the dorsal supine position with legs in Ronnell style stirrups. Sequential compression boots were placed prior to starting the case. Patient had voided just before coming to the operating room. Exam under anesthesia was performed. Patient noted to have sac protruding from the cervix. Cervix was approximately 1-1/2 cm dilated. Weighted speculum was placed in the vagina and the cervix was grasped with a single-tooth tenaculum. A paracervical block was performed using 10 mL of 2% lidocaine with epinephrine. The tissue was grasped with ring forceps and teased from the cervix. A size 11 suction curette was used and suction curettage was performed with additional tissue obtained. This was repeated until no further tissue was obtained. Sharp curettage was performed until there was a gritty texture throughout the endometrial cavity. Suction curettage was repeated until no further tissue was obtained. Tenaculum was removed and there was minimal bleeding from the tenaculum site. Patient tolerated the procedure well. Sponge and needle counts were correct. DRAINS: None POSTOPERATIVE STATUS: The patient was transferred to the recovery room in satisfactory condition. DISPOSITION: Discharge to home when criteria was met. FOLLOWUP APPOINTMENT: Followup appointment in my office in approximately 2 weeks. MEDICATIONS: No new prescriptions were given. Patient had prescription for [place] sent home with her from the ER on 08/28/2020.
--- NOTE | 2020-08-29 20:14 | PC.NURSE ---
Pt. has small amount of red serosanguos liquid on chance pad.
--- NOTE | 2020-08-29 20:30 | ANE.PACU2 ---
Inpatient post-anesthesia follow up: Airway intact: Yes Vital signs: Temperature 98.2 F Pulse Rate [Left] 103 Pulse Rate 93 Respiratory Rate 16 Blood Pressure [Le ft Arm] 121/75 Blood Pressure 123/65 Pulse Oximetry 96 Oxygen Delivery Me thod Room Air Oxygen Flow Rate 8 Fraction of Inspir ed Oxygen Hydration adequate: Yes Nausea and vomiting: No Pain level: 2 Mental status: Baseline
== END 2020-08-29 20:30 ==
LOC: ER 15:54 → OR 17:58
PROVIDERS: Nurse Practitioner Family; PCP Family Medicine; Visit Provider Obstetrics & Gynecology
PROC: (CPT 59812; principal; 2020-08-29 19:00)
DX: O03.4 Incomplete spontaneous abortion without complication (principal)
CPT/HCPCS: 59812; 12345; 76830; 76856; 76857; 80053; 84702; 85025; 88305; 99282; E0352; J0330; J1100; J1885; J2250; J2270; J2405; J2704; J3010

== ENCOUNTER 2020-10-30 17:01 | Emergency (ER) | payer BC, MEDICAID, SELFPAY ==
[2020-10-30 17:08] VITALS: BP 135/93; PULSE 106; RESP 18; TEMP 36.8; O2SAT 98; BMI 39.3
--- NOTE | 2020-10-30 17:58 | XRR_ITS ---
PROCEDURE INFORMATION: Exam: XR Chest, 1 View Exam date and time: 10/30/2020 6:03 PM Age: 20 years old Clinical indication: Shortness of breath; Chest pain; Type not specified; Patient HX: Cp, SOB x 3 days TECHNIQUE: Imaging protocol: XR of the chest Views: 1 view. COMPARISON: CR XR chest 1V portable [id number] 12/15/2019 9:08 AM FINDINGS: Lungs: There is small focal opacity projecting nasal right midlung field. This is a new finding and could represent a small developing pneumonia. The remaining lung barrientos are clear. Pleural space: Unremarkable. No pleural effusion. No pneumothorax. Heart/Mediastinum: Unremarkable. No cardiomegaly. Bones/joints: Unremarkable. XR/XR chest 1V portable [id number] IMPRESSION: Small patchy opacity in the right mid lung field possibly an early pneumonia. Clinical correlation and follow-up radiographs are advised.
--- NOTE | 2020-10-30 19:29 | ECG_ITS ---
[facility] Test Date: 2020-10-30 Pat Name: Yasmin Bacon Department: Room: Gender: Female Gum Machine Filler: : 2000 Requested By: Lisa Escamilla Order Number: [id number] Rajendra MD: Sidney Almendarez M.D. Measurements Intervals [place] Rate: 89 P: 45 MT: 123 QRS: 24 QRSD: 80 T: 31 QT: 334 QTc: 407 Interpretive Statements SINUS RHYTHM Compared to ECG 12/15/2019 10:39:02 No significant changes Electronically Signed On 11-02-2020 16:46:56 MANAGER AGRICULTURAL by Sidney Almendarez M.D. [email or web address]
--- NOTE | 2020-10-30 19:33 | W.ED.CHESTPA ---
HPI - Chest Pain General: Chief Complaint: Chest Pain Stated Complaint: Chest Pain SOB Time Seen by Provider: 10/30/20 19:25 Source: patient Mode of arrival: ambulatory Limitations: no limitations History of Present Illness: HPI narrative: 20-year-old female states she been having some shortness of breath and palpitations and slight chest pain over the last day to 2 days. She states she was around a Covid positive person at work and is concerned she had Covid or pneumonia. Patient's resting comfortably but does have tachycardia of 110. She denies any recent long travel. She did have a miscarriage in August. States her pain is a sharp pain and rates it a 2 out of 10. Associated symptoms: Reports dyspnea; Deny abdominal pain, fever(s), nausea or vomiting Review of Systems Const: Denies: fever(s), chills, body aches or change in appetite Eyes: Denies: blurry vision or eye discomfort ENMT: Denies: throat pain or dental pain Card: Reports: chest pain Resp: Reports: dyspnea GI: Denies: abdominal pain, nausea, vomiting or diarrhea : Denies: dysuria Musc: Denies: neck pain or back pain Skin/Breast: Denies: rash Neuro: Denies: headache(s) Psych: Denies: depression Jose/Lymph: Denies: easy bruising All/Imm: Denies: urticaria PFSH ED PFSH: Medical History (Updated 10/30/20 @ 21:07 by Lisa Escamilla MD) Epilepsy Reports being diagnosed with epilepsy. States has not had a seizure since December 2018. She is managed by Dr. Chi. Surgical History (Updated 09/17/20 @ 17:37 by Ashish Loera MD) S/P dilation and curettage (08/29/20) D&C with suction for treatment of miscarriage. Performed by Dr. Loera at [facility] [place], [place] Family History Other Diabetes Social History Smoking and tobacco status: never smoked Alcohol intake: never Current gender identity: Female Female Reproductive History: Date of last menstrual period: 10/16/20 Physical Exam Const: COMMON NORMALS: no acute distress, patient oriented x3 and healthy appearing HENMT: COMMON NORMALS: normocephalic and atraumatic HEAD & SCALP: normocephalic and atraumatic Eye: COMMON NORMALS: Equal, round and reactive pupils present and EOMs intact bilaterally PUPIL: Yes Equal, round and reactive pupils present Neck/C-Spine: COMMON NORMALS: full ROM and supple Chest: COMMONS NORMALS: normal inspection of the chest and normal palpation of entire chest wall Resp: COMMON NORMALS: normal respiratory effort, No retractions, No use of accessory muscles and clear to auscultation bilaterally AUSCULTATION: clear to auscultation bilaterally Cardio: COMMON NORMALS: regular rhythm and No murmurs present (Cardio) RATE: tachycardic RHYTHM: regular rhythm GI: COMMON NORMALS: Normal to inspection, nondistended, normoactive bowel sounds present, Soft to palpation, non-tender and no masses PALPATION: Yes Soft to palpation Extremity: COMMON NORMALS: normal to inspection and full ROM Neuro: COMMON NORMALS: patient oriented x3, moves all extremities and no focal motor deficits Psych: COMMON NORMALS: mental status grossly normal, Normal thought process present and cooperative THOUGHT PROCESS: Normal thought process present Skin: COMMON NORMALS: no rashes or lesions noted and no wounds GENERAL SKIN EXAM: no rashes or lesions noted Course Vital Signs: Vital signs: Vital Signs Temperature 98.3 F 10/30/20 17:08 Pulse Rate 107 H 10/30/20 19:57 Respiratory Rate 18 10/30/20 19:57 Blood Pressure 156/87 10/30/20 19:57 Pulse Oximetry 98 10/30/20 19:57 MDM - Chest Pain MDM Narrative: Medical decision making narrative: Patient presents with atypical chest pain. Her D-dimer and troponin here negative. She has no signs of pulmonary embolism or acute coronary syndrome. Patient has no pneumonia. Patient is stable for discharge and return if worsening. She understands and agrees to plan. Lab Data: Labs: Lab Results 10/30/20 10/30/20 10/30/20 Range/Units 19:49 19:49 19:49 WBC 8.8 (4.0-10.0) 10^3/ uL RBC 4.39 (4.1-5.3) 10^6/u L Hgb 13.4 (11.5-15.3) g/dL Hct 40.9 (37.0-47.0) % MCV 93.2 (81-99) fL MCH 30.5 (28.0-34.0) pg MCHC 32.8 (30.0-36.0) g/dL RDW 11.6 L (12.1-15.1) % Plt Count 291 (130-400) 10^3/c mm MPV 10.5 H (7.4-10.4) fL Neut % (Auto) 75.1 % Lymph % (Auto) 14.6 % Kern % (Auto) 8.3 % Eos % (Auto) 0.9 % Baso % (Auto) 0.6 % Neut # (Auto) 6.61 (1.8-7.7) 10^3/u L Lymph # (Auto) 1.3 (0.8-4.8) 10^3/u L Kern # (Auto) 0.7 (0.2-0.9) 10^3/u L Eos # (Auto) 0.1 (0.0-0.8) 10^3/u L Baso # (Auto) 0.1 (0.0-0.1) 10^3/u L Nucleated RBC % (a uto) 0 % Nucleated RBCs # 0.0 /100WBC D-Dimer 0.43 (0-0.59) ug/mIFE U Sodium 138 (136-145) mmol/L Potassium 4.4 (3.5-5.1) mmol/L Chloride 104 (98-107) mmol/L Carbon Dioxide 25 (22-29) mmol/L Anion Gap 13.4 (5-19) BUN 9 (6-20) mg/dL Creatinine 0.6 (0.5-0.9) mg/dL GFR Calculation 125.0 (90-130) mL/min Glucose 90 (65-115) mg/dL Calculated Osmolal ity 284 L (285-295) mOsm/k g Calcium 9.6 (8.5-10.5) mg/dL Total Bilirubin 0.2 (0.15-1.2) mg/dL AST 15 (0-32) U/L ALT 17 (0-33) U/L Alkaline Phosphata se 83 (35-105) IU/L Troponin T Baselin e (0-10) ng/L Total Protein 7.1 (6.6-8.7) g/dL Albumin 4.1 (3.5-5.2) g/dL Globulin 3.0 (1.3-4.6) g/dL 10/30/20 Range/Units 19:49 WBC (4.0-10.0) 10^3/ uL RBC (4.1-5.3) 10^6/u L Hgb (11.5-15.3) g/dL Hct (37.0-47.0) % MCV (81-99) fL MCH (28.0-34.0) pg MCHC (30.0-36.0) g/dL RDW (12.1-15.1) % Plt Count (130-400) 10^3/c mm MPV (7.4-10.4) fL Neut % (Auto) % Lymph % (Auto) % Kern % (Auto) % Eos % (Auto) % Baso % (Auto) % Neut # (Auto) (1.8-7.7) 10^3/u L Lymph # (Auto) (0.8-4.8) 10^3/u L Kern # (Auto) (0.2-0.9) 10^3/u L Eos # (Auto) (0.0-0.8) 10^3/u L Baso # (Auto) (0.0-0.1) 10^3/u L Nucleated RBC % (a uto) % Nucleated RBCs # /100WBC D-Dimer (0-0.59) ug/mIFE U Sodium (136-145) mmol/L Potassium (3.5-5.1) mmol/L Chloride (98-107) mmol/L Carbon Dioxide (22-29) mmol/L Anion Gap (5-19) BUN (6-20) mg/dL Creatinine (0.5-0.9) mg/dL GFR Calculation (90-130) mL/min Glucose (65-115) mg/dL Calculated Osmolal ity (285-295) mOsm/k g Calcium (8.5-10.5) mg/dL Total Bilirubin (0.15-1.2) mg/dL AST (0-32) U/L ALT (0-33) U/L Alkaline Phosphata se (35-105) IU/L Troponin T Baselin e 6 (0-10) ng/L Total Protein (6.6-8.7) g/dL Albumin (3.5-5.2) g/dL Globulin (1.3-4.6) g/dL Imaging Data^: CXR: Attestation: I personally reviewed and interpreted this imaging study as follows: My impression: no acute abnormality EKG Data^: EKG 1: Attestation: I personally reviewed and interpreted this EKG as follows: EKG interpretation date: 10/30/20 EKG interpretation time: 20:50 Interpretation: nsr hr [address] or t wave abnormalities qrs 80 qtc 381 Discharge Plan Discharge Patient Disposition: Home Clinical Impression: Atypical chest pain Condition: Stable Prescriptions: No Action etonogestrel-ethinyl estradiol 0.12-0.015 mg/24 hr ring 1 vag ring VAGINAL .COMPLEX Qty: 3 RF: 4 Depakote 500 mg tablet,delayed release (DR/EC) 500 mg PO BID@0900,1800 RF: 0 Discharge Orders: Discharge ED (Routine); Ordered 10/30/20 Ordered By: Lisa Escamilla Referrals: Mario Soliz MD [Primary Care Provider] - 1-3 days Discharge Diet: Advance as tolerated Discharge Activity: Resume usual activity Patient Instructions: Chest Pain (ED) Coding Level of Care Code ED Gis Analyst Developer for Chg Fwd Exam Comprehensive
[2020-10-30 19:57] VITALS: BP 156/87; PULSE 107; RESP 18; O2SAT 98
[2020-10-30 20:00] LABS: Basophils # 0.1 10^3/uL (0.0-0.1); Basophils % 0.6 %; Eosinophils # 0.1 10^3/uL (0.0-0.8); Eosinophils % 0.9 %; Hematocrit 40.9 % (37.0-47.0); Hemoglobin 13.4 g/dL (11.5-15.3); Lymphocytes # 1.3 10^3/uL (0.8-4.8); Lymphocytes % 14.6 %; Mean Corpuscular HGB Conc 32.8 g/dL (30.0-36.0); Mean Corpuscular Hemoglobin 30.5 pg (28.0-34.0); Mean Corpuscular Volume 93.2 fL (81-99); Mean Platelet Volume 10.5 fL (7.4-10.4); Monocytes # 0.7 10^3/uL (0.2-0.9); Monocytes % 8.3 %; Neutrophils # 6.61 10^3/uL (1.8-7.7); Neutrophils % 75.1 %; Nucleated Red Blood Cells % 0 %; Platelet Count 291 10^3/cmm (130-400); Red Blood Count 4.39 10^6/uL (4.1-5.3); Red Cell Distribution Width 11.6 % (12.1-15.1); White Blood Count 8.8 10^3/uL (4.0-10.0)
[2020-10-30 20:15] LABS: Alanine Aminotransferase 17 U/L (0-33); Albumin Level 4.1 g/dL (3.5-5.2); Alkaline Phosphatase 83 IU/L (35-105); Anion Gap 13.4 (5-19); Aspartate Amino Transferase 15 U/L (0-32); Blood Urea Nitrogen 9 mg/dL (6-20); Calcium 9.6 mg/dL (8.5-10.5); Carbon Dioxide 25 mmol/L (22-29); Chloride 104 mmol/L (98-107); D Dimer 0.43 ug/mIFEU (0-0.59); Glucose 90 mg/dL (65-115); Osmolality Calculated 284 mOsm/kg (285-295); Potassium 4.4 mmol/L (3.5-5.1); Sodium 138 mmol/L (136-145); Total Bilirubin 0.2 mg/dL (0.15-1.2); Total Protein 7.1 g/dL (6.6-8.7)
[2020-10-30 21:02] LABS: Troponin(5th) Baseline 6 ng/L (0-10)
[2020-10-30 21:31] VITALS: BP 132/76; PULSE 78; RESP 16; O2SAT 98
[2020-11-01 14:13] LABS: Quest SARS-CoV-2 RNA DETECTED (NOT DETECTED)
--- NOTE | 2020-11-01 18:39 | PC.NURSE ---
Patient called and given COVID results at this time.
== END 2020-10-30 21:33 | disposition home or self-care (01) ==
PROVIDERS: Emergency Provider Emergency Medicine; PCP Family Medicine
DX: R07.89 Other chest pain (principal); U07.1 COVID-19
CPT/HCPCS: 12345; 71045; 80053; 84484; 85025; 85378; 87635; 93005; 99282; 99283

== ENCOUNTER → 2020-11-12 16:58 | Outpatient (BNVA) | payer BC, SELFPAY | PROVIDERS: PCP Family Medicine; Visit Provider Nurse Practitioner Family | DX: Z02.0 Encounter for examination for admission to educational institution (principal) | CPT/HCPCS: 86787 ==

== ENCOUNTER → 2021-05-27 10:09 | Outpatient (BNVA) | payer BC, SELFPAY | PROVIDERS: PCP Family Medicine; Visit Provider Nurse Practitioner Family | DX: J06.9 Acute upper respiratory infection, unspecified (principal); Z20.822 Contact with and (suspected) exposure to COVID-19 | CPT/HCPCS: 87635 ==

== ENCOUNTER → 2021-08-04 09:18 | Outpatient (BNVA) | payer BC, SELFPAY | PROVIDERS: PCP Family Medicine; Visit Provider Nurse Practitioner Family | DX: Z20.822 Contact with and (suspected) exposure to COVID-19 (principal) | CPT/HCPCS: 87635 ==

== ENCOUNTER 2021-09-12 19:05 | Outpatient (CLI) | payer BC, SELFPAY ==
[2021-09-12] VITALS (11 sets, daily range): BP systolic 92–143; BP diastolic 49–74; PULSE 90–101; RESP 16; TEMP 36.4–36.6; BMI 45.3
[2021-09-12 20:05] LABS: Add Urine Microscopic? NO; Charge for UA Resulting for Rev
[2021-09-12 20:08] LABS: Basophils % 0.3 %; Eosinophils # 0.1 10^3/uL (0.0-0.8); Eosinophils % 0.5 %; Hematocrit 33.2 % (37.0-47.0); Hemoglobin 11.3 g/dL (11.5-15.3); Lymphocytes # 1.8 10^3/uL (0.8-4.8); Lymphocytes % 16.9 %; Mean Corpuscular Hemoglobin 30.1 pg (28.0-34.0); Mean Corpuscular Volume 88.3 fl (81-99); Mean Platelet Volume 10.8 fL (7.4-10.4); Monocytes # 0.7 10^3/uL (0.2-0.9); Monocytes % 6.8 %; Neutrophils # 7.95 10^3/uL (1.8-7.7); Neutrophils % 74.7 %; Nucleated Red Blood Cells % 0 %; Platelet Count 230 10^3/cmm (130-400); Red Blood Count 3.76 10^6/uL (4.1-5.3); Red Cell Distribution Width 13.4 % (12.1-15.1); White Blood Count 10.6 10^3/uL (4.0-10.0)
[2021-09-12] MEDS: sodium chloride 0.9% 1,000 ML 999 ML IV (20:10)
[2021-09-12] MEDS: ondansetron 2 mg/ML SDV 2 mL 4 MG IVP (20:10)
[2021-09-12] MEDS: acetaminophen 500 mg Tablet 1000 MG PO (20:10)
[2021-09-12 20:21] LABS: Bilirubin Urine Neg (Negative); Blood Urine Neg (Negative); Glucose Urine UA 1+ (Normal); Ketones Urine 1+ (Negative); Leukocyte Esterase Urine Negative (Negative); Nitrate Urine Negative (Negative); Protein Urine Neg (Negative); Urine Appearance Clear (CLEAR); Urine Color Yellow (Yellow); Urobilinogen Urine Norm (Negative); pH Urine 5 (5-7)
[2021-09-12] MEDS: divalproex DR 500 mg Tablet PO (20:25)
[2021-09-12 20:28] LABS: UPRO/UCREAT Ratio 0.25 mg/mg CR; Urine Creatinine 57 mg/dL (28-217); Urine Protein Random 14 mg/dL
[2021-09-12 20:35] LABS: Alanine Aminotransferase 7 U/L (0-33); Albumin Level 3.4 g/dL (3.5-5.2); Alkaline Phosphatase 87 IU/L (35-105); Anion Gap 15.9 (5-19); Aspartate Amino Transferase 10 U/L (0-32); Blood Urea Nitrogen 5 mg/dL (6-20); Calcium 8.7 mg/dL (8.5-10.5); Carbon Dioxide 19 mmol/L (22-29); Chloride 102 mmol/L (98-107); Globulin 2.8 g/dL (1.3-4.6); Glomerular Filtration Rate 197.8 mL/min (90-130); Glucose 88 mg/dL (65-115); Osmolality Calculated 273 mOsm/kg (285-295); Potassium 3.9 mmol/L (3.5-5.1); Sodium 133 mmol/L (136-145); Total Bilirubin 0.2 mg/dL (0.15-1.2); Total Protein 6.2 g/dL (6.6-8.7); Uric Acid 5.6 mg/dL (2.4-5.7); Valproic Acid Level 27.9 ug/mL (50-100)
== END 2021-09-12 21:35 | disposition home or self-care (01) ==
LOC: OPOB 19:07 → OBGYN 21:30
PROVIDERS: PCP Family Medicine; Visit Provider Family Medicine
DX: O99.891 Other specified diseases and conditions complicating pregnancy (principal); R56.9 Unspecified convulsions
CPT/HCPCS: 36415; 59025; 80053; 80164; 81003; 82570; 84156; 84550; 85025; 96361; 96374; 99211; J2405; J7030

== ENCOUNTER → 2021-10-07 13:12 | Outpatient (BNVA) | payer BC, SELFPAY | PROVIDERS: PCP Family Medicine; Visit Provider Specialist | DX: G40.A09 Absence epileptic syndrome, not intractable, without status epilepticus (principal); G40.309 Generalized idiopathic epilepsy and epileptic syndromes, not intractable, without status epilepticus; Z33.1 Pregnant state, incidental | CPT/HCPCS: 99214; 99215 ==

== ENCOUNTER 2021-10-17 10:25 | Outpatient (CLI) | payer BC, SELFPAY ==
[2021-10-17 10:25] VITALS: BMI 39.6
[2021-10-17 10:41] VITALS: BP 143/95; PULSE 110; TEMP 36.4
[2021-10-17 10:48] VITALS: RESP 18; TEMP 36.3
[2021-10-17 11:02] VITALS: BP 127/77; PULSE 116
== END 2021-10-17 11:15 | disposition home or self-care (01) ==
LOC: OPOB 10:29 → OBGYN 10:31
PROVIDERS: PCP Family Medicine; Visit Provider Family Medicine
DX: O24.419 Gestational diabetes mellitus in pregnancy, unspecified control (principal); Z3A.00 Weeks of gestation of pregnancy not specified
CPT/HCPCS: 59025

== ENCOUNTER 2021-10-25 10:00 | Outpatient (CLI) | payer BC, SELFPAY ==
[2021-10-25 10:00] VITALS: BMI 46.4
[2021-10-25 10:16] VITALS: BP 142/96; PULSE 115; TEMP 36
[2021-10-25 10:19] VITALS: RESP 16
[2021-10-25 10:47] VITALS: BP 145/100; PULSE 100
[2021-10-25 11:07] VITALS: BP 154/88; PULSE 54
[2021-10-25 11:47] VITALS: BP 130/85; PULSE 118
[2021-10-25 11:55] LABS: Urine Creatinine 172 mg/dL (28-217)
[2021-10-25 11:56] LABS: UPRO/UCREAT Ratio 0.15 mg/mg CR; Urine Protein Random 26 mg/dL
[2021-10-25 12:30] VITALS: BP 130/85; PULSE 118
== END 2021-10-25 12:30 | disposition home or self-care (01) ==
LOC: OPOB 10:03 → OBGYN 10:04
PROVIDERS: Family Medicine; PCP Family Medicine; Visit Provider Family Medicine
DX: O24.419 Gestational diabetes mellitus in pregnancy, unspecified control (principal); Z3A.00 Weeks of gestation of pregnancy not specified
CPT/HCPCS: 59025; 82570; 84156; 99211

== ENCOUNTER 2021-10-27 17:57 | Outpatient (CLI) | payer BC, MEDICAID, SELFPAY ==
[2021-10-27] VITALS (12 sets, daily range): BP systolic 122–154; BP diastolic 69–94; PULSE 90–122; RESP 16; TEMP 36.2–36.7; O2SAT 98–99; BMI 46.0
[2021-10-27 18:59] LABS: Add Urine Microscopic? NO; Charge for UA Resulting for Rev
[2021-10-27 19:02] LABS: Basophils % 0.2 %; Eosinophils % 0.3 %; Hematocrit 35.5 % (37.0-47.0); Hemoglobin 11.8 g/dL (11.5-15.3); Lymphocytes # 1.1 10^3/uL (0.8-4.8); Lymphocytes % 13.1 %; Mean Corpuscular HGB Conc 33.2 g/dL (30.0-36.0); Mean Corpuscular Hemoglobin 28.4 pg (28.0-34.0); Mean Corpuscular Volume 85.5 fl (81-99); Mean Platelet Volume 11.1 fL (7.4-10.4); Monocytes % 11.5 %; Neutrophils # 6.45 10^3/uL (1.8-7.7); Neutrophils % 74.6 %; Nucleated Red Blood Cells % 0 %; Platelet Count 212 10^3/cmm (130-400); Red Blood Count 4.15 10^6/uL (4.1-5.3); Red Cell Distribution Width 13.9 % (12.1-15.1); White Blood Count 8.7 10^3/uL (4.0-10.0)
[2021-10-27 19:05] LABS: Bilirubin Urine Neg (Negative); Blood Urine Neg (Negative); Glucose Urine UA Norm (Normal); Ketones Urine 1+ (Negative); Leukocyte Esterase Urine Negative (Negative); Nitrate Urine Negative (Negative); Protein Urine Neg (Negative); Specific Gravity, Urine 1.015 (1.005-1.030); Urine Appearance Clear (CLEAR); Urine Color Yellow (Yellow); Urobilinogen Urine Norm (Negative); pH Urine 5 (5-7)
[2021-10-27 19:23] LABS: Alanine Aminotransferase 13 U/L (0-33); Albumin Level 3.2 g/dL (3.5-5.2); Alkaline Phosphatase 167 IU/L (35-105); Aspartate Amino Transferase 19 U/L (0-32); Blood Urea Nitrogen 4 mg/dL (6-20); Calcium 8.4 mg/dL (8.5-10.5); Carbon Dioxide 16 mmol/L (22-29); Chloride 104 mmol/L (98-107); Globulin 2.9 g/dL (1.3-4.6); Glomerular Filtration Rate 197.8 mL/min (90-130); Glucose 76 mg/dL (65-115); Osmolality Calculated 274 mOsm/kg (285-295); Sodium 134 mmol/L (136-145); Total Bilirubin 0.2 mg/dL (0.15-1.2); Total Protein 6.1 g/dL (6.6-8.7); Uric Acid 5.2 mg/dL (2.4-5.7)
[2021-10-27 19:24] LABS: Urine Creatinine 73 mg/dL (28-217); Urine Protein Random 8 mg/dL
[2021-10-27 19:26] LABS: UPRO/UCREAT Ratio 0.11 mg/mg CR
[2021-10-27] MEDS: acetaminophen 500 mg Tablet 1000 MG PO (19:31)
== END 2021-10-27 20:44 | disposition home or self-care (01) ==
LOC: OPOB 18:04 → OBGYN 18:05
PROVIDERS: PCP Family Medicine; Visit Provider Family Medicine
DX: O16.9 Unspecified maternal hypertension, unspecified trimester (principal); Z3A.00 Weeks of gestation of pregnancy not specified
CPT/HCPCS: 59025; 80053; 81003; 82570; 84156; 84550; 85025; 99211

== ENCOUNTER 2021-11-01 14:22 | Inpatient (IN) | payer BC, MEDICAID, SELFPAY ==
[2021-11-01] VITALS (129 sets, daily range): BP systolic 106–187; BP diastolic 52–111; PULSE 50–160; RESP 16–17; O2SAT 91–100; BMI 43.9
[2021-11-01 12:27] LABS: Add Urine Microscopic? YES; Bilirubin Urine Neg (Negative); Blood Urine Neg (Negative); Glucose Urine UA Norm (Normal); Ketones Urine 2+ (Negative); Leukocyte Esterase Urine Negative (Negative); Nitrate Urine Negative (Negative); Protein Urine 1+ (Negative); Specific Gravity, Urine 1.025 (1.005-1.030); Urine Appearance Clear (CLEAR); Urine Color Yellow (Yellow); Urobilinogen Urine Norm (Negative); pH Urine 5 (5-7)
[2021-11-01 12:36] LABS: Add Urine Culture? No; Bacteria Urine 1+ /hpf; Mucus Urine TRACE /hpf; Squamous Epithelial Cell Urine 25-40 /hpf (0-5)
[2021-11-01 12:50] LABS: Valproic Acid Level 26.4 ug/mL (50-100)
[2021-11-01 13:17] LABS: Urine Creatinine 128 mg/dL (28-217)
[2021-11-01 13:19] LABS: UPRO/UCREAT Ratio 0.91 mg/mg CR; Urine Protein Random 117 mg/dL
[2021-11-01] MEDS: miSOPROStol 100 mcg tablet 25 MCG VAGINAL (14:58)
[2021-11-01] MEDS: divalproex ER 500 mg Tablet (24H) PO ×2 (14:58→21:27)
--- NOTE | 2021-11-01 16:42 | PC.NURSE ---
seizure activity noted today at home at 1023 lasting approximately 1 min
[2021-11-01] MEDS: fentaNYL 50 mcg/mL INJ 2mL IVP ×2 (18:36→19:45)
[2021-11-01 18:53] LABS: Glucose Point of Care 79 mg/dL (70-110)
[2021-11-01] MEDS: ondansetron 2 mg/ML SDV 2 mL 4 MG IVP (19:07)
[2021-11-01] MEDS: lactated ringers 1,000 ML 999 ML IV (19:20)
[2021-11-01] MEDS: labetalol 5 mg/mL SDV 20mL 20 MG IVP (19:37)
[2021-11-01 19:47] LABS: Basophils % 0.2 %; Eosinophils # 0.1 10^3/uL (0.0-0.8); Eosinophils % 0.6 %; Hematocrit 37.2 % (37.0-47.0); Hemoglobin 12.3 g/dL (11.5-15.3); Lymphocytes # 1.7 10^3/uL (0.8-4.8); Lymphocytes % 16.4 %; Mean Corpuscular HGB Conc 33.1 g/dL (30.0-36.0); Mean Corpuscular Hemoglobin 28.2 pg (28.0-34.0); Mean Corpuscular Volume 85.3 fl (81-99); Mean Platelet Volume 11.5 fL (7.4-10.4); Monocytes # 0.7 10^3/uL (0.2-0.9); Monocytes % 6.2 %; Neutrophils # 8.04 10^3/uL (1.8-7.7); Neutrophils % 76.2 %; Nucleated Red Blood Cells % 0 %; Platelet Count 259 10^3/cmm (130-400); Red Blood Count 4.36 10^6/uL (4.1-5.3); Red Cell Distribution Width 13.9 % (12.1-15.1); White Blood Count 10.5 10^3/uL (4.0-10.0)
[2021-11-01 19:57] LABS: Glucose Point of Care 103 mg/dL (70-110)
--- NOTE | 2021-11-01 20:18 | P.ANESUD_ITS ---
Pre-Anesthetic Update Pre-Anesthetic Assessment: Date of Surgery/Procedure: 11/01/21 Preop Eduarda gnosis: Incomplete at 18 weeks Proposed Procedure: epidural Any changes to Pre-Anesthetic Assessment?: No Labs Last 48hrs: Laboratory Results - last 48 hr 11/01/21 11/01/21 11/01/21 12:10 12:10 12:20 WBC RBC Hgb Hct MCV MCH MCHC RDW Plt Count MPV Neut % (Auto) Lymph % (Auto) Patrick % (Auto) Eos % (Auto) Baso % (Auto) Neut # (Auto) Lymph # (Auto) Patrick # (Auto) Eos # (Auto) Baso # (Auto) Nucleated RBC % (a uto) Nucleated RBCs # POC Glucose Urine Color Yellow Urine Appearance Clear Urine pH 5 Ur Specific Gravit y 1.025 Urine Protein 1+ H Urine Glucose (UA) Norm Urine Ketones 2+ H Urine Blood Neg Urine Nitrate Negative Urine Bilirubin Neg Urine Urobilinogen Norm Ur Leukocyte Shavon ase Negative Urine RBC None Urine WBC None Ur Squamous Epith Cells 25-40 H Amorphous Sediment Not Reportable Urine Bacteria 1+ H Urine Mucus Trace U Random Total Pro tein 117 Urine Creatinine 128 Protein/Creatinin Ratio 0.91 Valproic Acid 26.4 L 11/01/21 11/01/21 11/01/21 14:50 18:47 19:48 WBC 10.5 H RBC 4.36 Hgb 12.3 Hct 37.2 MCV 85.3 MCH 28.2 MCHC 33.1 RDW 13.9 Plt Count 259 MPV 11.5 H Neut % (Auto) 76.2 Lymph % (Auto) 16.4 Patrick % (Auto) 6.2 Eos % (Auto) 0.6 Baso % (Auto) 0.2 Neut # (Auto) 8.04 H Lymph # (Auto) 1.7 Patrick # (Auto) 0.7 Eos # (Auto) 0.1 Baso # (Auto) 0.0 Nucleated RBC % (a uto) 0 Nucleated RBCs # 0.0 POC Glucose 79 103 Urine Color Urine Appearance Urine pH Ur Specific Gravit y Urine Protein Urine Glucose (UA) Urine Ketones Urine Blood Urine Nitrate Urine Bilirubin Urine Urobilinogen Ur Leukocyte Shavon ase Urine RBC Urine WBC Ur Squamous Epith Cells Amorphous Sediment Urine Bacteria Urine Mucus U Random Total Pro tein Urine Creatinine Protein/Creatinin Ratio Valproic Acid Vitals: Pulse Rate 65 12/25/21 20:15 Respiratory Rate 16 11/01/21 19:45 Respiratory Effort Non-Labored 11/01/21 19:45 Respiratory Depth Normal 11/01/21 19:45 Respiratory Patter n 11/01/21 19:45 Blood Pressure 120/61 11/01/21 20:07 Pulse Oximetry 97 11/01/21 20:15 Oxygen Delivery Me thod 11/01/21 18:29 Exam: Pre-Anes Outpt Exam: alert and oriented x 3 Cardiac Studies: No Data to Display
--- NOTE | 2021-11-01 20:45 | PC.NURSE ---
ALEX Colvin reports that she can not start the epidural pump due to patient's legs being so numb and epidural being placed too deeply. ALEX Colvin reports that she will go home and return in 1 hour to repeat procedure.
--- NOTE | 2021-11-01 22:48 | ANES.PROC ---
Anesthesia Procedures Procedure/Date: 11/01/21 epidural Epidural: Time Out Performed: Yes Consents Signed: Procedure Consent Consent: from patient, risks and benefits reviewed and patient agrees to proceed Lumbar Level: L3-L4 Epidural position: sitting Epidural procedure: sterile prep of area, 1% lidocaine to numb the area, 18 g needle, test dose given, 1.5% xylocaine 1:200k epi, placed PCEA, no systemic response, sterile dressing applied, L.U.D. no apparent complications and 0.2% Ropiavacaine @ mls/hr Additional Comments: attempt 1- positive test dose: patient experienced motor block to lower extremities. no other symptoms. removed catheter. attempt 2 successful placement (1.5 hours after first attempt): ALINA at 6.5, taped at 13 at skin.
[2021-11-02] VITALS (106 sets, daily range): BP systolic 98–177; BP diastolic 48–102; PULSE 66–127; RESP 16–18; TEMP 36.3–37.7; O2SAT 98–100
--- NOTE | 2021-11-02 00:01 | PC.NURSE ---
Patient's pump not started per ALEX Colvin. ALEX Colvin states to call when patient can move her toes and she will come back to start pump. Called ALEX Colvin at [phone] to advise patient was able to move her feet and ALEX Colvin reported to patient's room at [phone]
[2021-11-02 02:00] LABS: Glucose Point of Care 99 mg/dL (70-110)
[2021-11-02] MEDS: miSOPROStol 100 mcg tablet 25 MCG SUBLINGUAL (03:00)
[2021-11-02] MEDS: dextrose 5%-lactated ringers 1,000 ML 125 ML IV ×3 (04:20→20:00)
[2021-11-02 06:01] LABS: Glucose Point of Care 88 mg/dL (70-110)
[2021-11-02] MEDS: divalproex ER 500 mg Tablet (24H) PO ×3 (09:07→21:21)
[2021-11-02 09:16] LABS: Glucose Point of Care 89 mg/dL (70-110)
[2021-11-02] MEDS: oxytocin 30 UNIT/500 ML BAG IV (11:21)
[2021-11-02 13:13] LABS: Glucose Point of Care 93 mg/dL (70-110)
--- NOTE | 2021-11-02 17:26 | PM.OPHPUD ---
Labor & Delivery H&P Update Date of Procedure: November 02, 2021 Date H&P Performed: 10/29/21 H&P update information: I have reviewed H&P completed within last 30 days, I have examined patient prior to procedure and Changes to prior documentation as noted here Changes to previous documentation: Her protein creatinine ratio was 0.9. She did have a brief seizure and she fell and hit her head. There were no residual neurologic symptoms. She did not lose consciousness. She had no other symptoms of preeclampsia otherwise. Other than her seizure disorder, the patient has had an unremarkable . She did have a seizure several weeks ago. She was found to have Depakote levels that were subtherapeutic. Her Depakote was increased. And she had not had any seizures until the seizure just prior to admission. Her labs have been within normal limits with exception of having gestational diabetes. Her blood sugars been well controlled. Her blood type is O+. She is antibody negative. She is GBS negative. She is Covid negative. Admission Diagnosis: 21-year-old 1 at 38 weeks and 3 days presenting with seizure and fall, as well as an elevated protein creatinine ratio Planned procedure: Induction with spontaneous vaginal delivery Related Problem List Diagnoses (1) 38 weeks gestation of : (2) Seizure disorder during in third trimester: (3) Proteinuria:
[2021-11-02 17:38] LABS: Glucose Point of Care 85 mg/dL (70-110)
--- NOTE | 2021-11-02 20:46 | P.MISC_ITS ---
Miscellaneous Note Purpose of Documentation: Pain Note: Patient complaining of increased pressure/pain. Patient defecating upon arrival, contributing to increased feelings of pressure. Epidural site appears intact. Reinforced with extra tape. Bupi 0.25% 10 cc given via epidural over 5- 10 minute increment. Patient stated subsequent contractions were somewhat improved, though still uncomfortable. Nurse states patient appears more comfortable than before bolus. Patient is 1+ station with small anterior lip, so replacing epidural not optimal at such late stage and appears to be properly working. Informed patient that bolus should continue to improve pain of contrac tions as it reaches its peak over the next 30 minutes, however, pressure is anticipated and normal with descent and discomfort may not go away completely with the bolus.
[2021-11-02 21:18] LABS: Glucose Point of Care 103 mg/dL (70-110)
--- NOTE | 2021-11-02 22:18 | P.PCNOB_ITS ---
Delivery Note: Date of delivery: November 02, 2021 Pre-delivery diagnoses: 21-year-old 1 at 38 weeks estimated gestational age status post induction due to elevated protein creatinine ratio. Post-delivery diagnoses: Status post spontaneous vaginal delivery Procedure: Spontaneous vaginal delivery Op report anesthesia: Epidural Delivering Physician: Vidal Lee Estimated blood loss (mL): 100 Pre-Delivery Course: The patient presented to the hospital due to having a short seizure at home. The patient has a known seizure disorder. This is a second seizure she had in her . She had no postictal phase. She did hit her head when she had her seizure. Delivery: DELIVERY: The patient progressed to complete without difficulty. She delivered a male with a weight of 7 pounds 3 ounces with Apgars of 8, 8. The baby was delivered from the RAYMUNDO position and placed on the mother's abdomen. The cord was then clamped and cut. There was a nuchal cord x1 there was no meconium. The placenta and 3 vessel cord were delivered intact shortly thereafter. The perineum and vaginal vault were carefully examined. A first- degree posterior midline tear was noted with minimal bleeding. No repair was required. Both the mother and the baby were in stable condition. Post-Delivery Status: Good History History History 1 Term 0 Miscarriages/Ectopic 1 0 Living Children 0 Other History: The patient's was remarkable for having a seizure about a month ago. She was found to have subtherapeutic Depakote which was then adjusted upwards. Today she was once again found to have subtherapeutic Depakote levels after her seizure. Please see H&P for details regarding the risk for A&P Assessment and plan (1) 38 weeks gestation of : I anticipate routine care. We have increased her Depakote to 500 g 3 times a day. She is planning to breast-feed and we have talked about the pros and cons of breast-feeding with Depakote. Status: Acute (2) Seizure disorder during in third trimester: Status: Acute (3) Proteinuria: The patient had no other signs of preeclampsia. Regardless a preeclamptic panel was performed which was negative. Status: Acute Coding Level of Care Code Acute Distributor Of Directories for g Fwd Diagnoses 38 weeks gestation of Z3A.38 Seizure disorder during in third trimester O99.353; G40.909 Proteinuria R80.9
[2021-11-03] VITALS (21 sets, daily range): BP systolic 115–157; BP diastolic 55–85; PULSE 80–101; RESP 16–18; TEMP 36.8–37.4; O2SAT 99
[2021-11-03] MEDS: HYDROcodone-acetaminophen 5-325 mg Tablet PO ×2 (00:31→09:45)
[2021-11-03 02:02] LABS: Glucose Point of Care 126 mg/dL (70-110)
[2021-11-03] MEDS: benzocaine-menthol 78 gm Canister 1 SPRAY TOPICAL (03:13)
[2021-11-03] MEDS: lanolin oint 7 gm 1 APPLIC TOPICAL (03:14)
[2021-11-03 06:13] LABS: Glucose Point of Care 85 mg/dL (70-110)
--- NOTE | 2021-11-03 08:21 | PC.NURSE ---
Anesthesia in room to visit with patient at this time. Patient stated she has had a headache since she delivered last night. Dr. Tai discussed options with her at this time. He stated he would come later in the afternoon to check on the patient unless the nursing staff called him first.
--- NOTE | 2021-11-03 08:42 | P.PN_ITS ---
HAZARDOUS SUBSTANCES ENGINEER Subjective Subjective: Interval history: The patient suffering from a headache this morning. It appears to be positional. Anesthesia has been into see the patient and are considering options for spinal headache. Otherwise, her bleeding has been within normal limits. Her pain is been well controlled. Vitals/I&O/Wt Last Vital Signs Temp 99.4 F 11/03/21 01:00 Pulse 80 11/03/21 07:18 Resp 16 11/03/21 06:00 BP 135/79 11/03/21 07:18 Pulse Ox 98 11/02/21 00:59 11/02/21 11/03/21 11/03/21 22:59 06:59 14:59 Intake Total 1471.100 / 2660.566 774.2 / 3434.766 Output Total 1250 / 1250 900 / 2150 Balance 221.100 / 1410.566 -125.8 / 1284.766 Weight last 48 hrs Weight 240 lb Physical Exam Narrative: EXAM NARRATIVE: The patient is alert. She appears comfortable. Her heart has a regular rate and rhythm with no murmurs appreciated. Lungs are clear to auscultation bilaterally. Her fundus is firm and below the umbilicus. Urinary Catheter Management^: Eagle: Cath Placed During This Visit: yes, but has since been removed by the nurse Reason for Continuing Indwelling Catheter: Required Immobilization for Trauma or Surgery or Anesthesia Urinary Catheter Date of Insertion: 11/01/21 Urinary Catheter Time of Insertion: 23:13 Date Urinary Catheter Removed: 11/02/21 Time Urinary Catheter Discontinued: 21:52 Data : 11/03/21 10:25 A&P Assessment and plan (1) 38 weeks gestation of : Status: Acute (2) Status post vaginal delivery: I anticipate routine care. She will likely be discharged tomorrow morning. We will need to check her Depakote level later this week. Status: Acute Attestations Medical Necessity Statement*: Routine post vaginal delivery care Coding Level of Care Code Acute Certified Pharmacy Technician for Chg Fwd Diagnoses 38 weeks gestation of Z3A.38 Status post vaginal delivery
--- NOTE | 2021-11-03 09:07 | ANE.PACU2 ---
Inpatient post-anesthesia follow up: Airway intact: Yes Vital signs: Temperature 99.4 F Pulse Rate 80 Respiratory Rate 16 Blood Pressure 135/79 Pulse Oximetry 98 Oxygen Delivery Me thod Room Air Oxygen Flow Rate Fraction of Inspir ed Oxygen Hydration adequate: Yes Nausea and vomiting: No Pain level: 2 Mental status: Baseline Additional Comments: C/O positional H/A, sounds likely PDPH...discussed blood patch, will f/u in morning.
[2021-11-03] MEDS: docusate sodium 100 mg Capsule PO ×2 (09:43→18:18)
[2021-11-03] MEDS: ibuprofen 800 mg tablet PO ×3 (09:43→22:03)
[2021-11-03] MEDS: prenatal vitamin Capsule 1 CAP PO (09:43)
[2021-11-03 10:38] LABS: Hematocrit 32.2 % (37.0-47.0); Hemoglobin 10.4 g/dL (11.5-15.3); Mean Corpuscular HGB Conc 32.3 g/dL (30.0-36.0); Mean Corpuscular Hemoglobin 27.6 pg (28.0-34.0); Mean Corpuscular Volume 85.4 fl (81-99); Mean Platelet Volume 11.1 fL (7.4-10.4); Platelet Count 205 10^3/cmm (130-400); Red Blood Count 3.77 10^6/uL (4.1-5.3); White Blood Count 15.8 10^3/uL (4.0-10.0)
[2021-11-03] MEDS: divalproex ER 500 mg Tablet (24H) 1000 MG PO ×3 (10:56→22:03)
[2021-11-04 03:58] VITALS: BP 142/82; PULSE 90; TEMP 36.6; O2SAT 97
--- NOTE | 2021-11-04 07:27 | PM.OBGYDC ---
Discharge Providers COMPUTER BOOKKEEPER Date of Admission: 11/01/21 14:22 Date of Discharge: 11/04/21 Attending Provider at Admission: Vidal Lee MD Attending Provider at Discharge: Vidal Lee MD Primary Care Provider: Vidal Lee MD Diagnoses at Discharge Discharge Diagnosis (1) 38 weeks gestation of : Status: Acute (2) Seizure disorder during in third trimester: Status: Acute (3) Proteinuria: Status: Acute Reason for Visit Reason for Visit: Fell with siezure at home Hospital Course Hospital Course The patient presented to the hospital post seizure as well as head trauma. She was noted to have a protein creatinine ratio 0.9. Induction was initiated with Cytotec. Later an amniotomy was performed, and her labor was augmented with Pitocin. She progressed to complete and had an unremarkable delivery of a healthy appearing male infant. Her course was remarkable for having a spinal headache which resolved. Otherwise her pain was well controlled. Her bleeding was within normal limits. She breast-fed well. Information Peripartum Data: Infant Delivery Method: Vaginal Physical Exam Narrative: EXAM NARRATIVE: The patient is alert. She appears comfortable. Her heart has a regular rate and rhythm with no murmurs appreciated. Lungs are clear to auscultation bilaterally. Her fundus is firm and below the umbilicus. Urinary Catheter Management^: Eagle: Cath Placed During This Visit: yes, but has since been removed by the nurse Reason for Continuing Indwelling Catheter: Required Immobilization for Trauma or Surgery or Anesthesia Urinary Catheter Date of Insertion: 11/01/21 Urinary Catheter Time of Insertion: 23:13 Date Urinary Catheter Removed: 11/02/21 Time Urinary Catheter Discontinued: 21:52 History History History 1 Term 0 Miscarriages/Ectopic 1 0 Living Children 0 Other History: The patient's was remarkable for having a seizure about a month ago. She was found to have subtherapeutic Depakote which was then adjusted upwards. Today she was once again found to have subtherapeutic Depakote levels after her seizure. Please see H&P for details regarding the risk for Discharge Data Data Completed and Pending: Labs from last 24 hours 11/03/21 10:25 WBC 15.8 H RBC 3.77 L Hgb 10.4 L Hct 32.2 L MCV 85.4 MCH 27.6 L MCHC 32.3 RDW 14.0 Plt Count 205 MPV 11.1 H Vitals: Last Vital Signs Temp 97.8 F 11/04/21 03:58 Pulse 90 11/04/21 03:58 Resp 16 11/03/21 16:00 BP 142/82 11/04/21 03:58 Pulse Ox 97 11/04/21 03:58 Discharge Plan Discharge Patient Disposition: Home Condition: Stable Prescriptions: New ibuprofen 800 mg Tablet 800 mg PO TID Qty: 45 RF: 0 divalproex 500 mg Tablet Extended Release 24 Hr 1,000 mg PO TID Qty: 180 RF: 0 Continued midazolam 5 mg/spray (0.1 mL) spray,non-aerosol 1 spray intranasal ONCE PRN (Reason: seizures) Qty: 1 RF: 5 Discontinued FCL-airw-GS-omega 3-fat com #1 27-1-300 mg capsule PO RF: 0 divalproex 500 mg tablet,delayed release (DR/EC) 500 mg PO TID RF: 0 Discharge Orders: Discharge Order (Routine); Ordered 11/04/21 Ordered By: Vidal Lee Referrals: Vidal Lee MD [Primary Care Provider] - 4-7 days Discharge Diet: Usual diet Discharge Activity: Limit activity as instructed Patient Instructions: Depression (DC), Bleeding (DC), Preeclampsia and Eclampsia After Delivery (GEN), Vaginal Delivery (DC), OB Discharge Report, OB Food/Drug Interaction Guide, Opioid Safety, OB Home Care, Seizures Discharge Attestations COMPUTER BOOKKEEPER Time Spent in Discharge Care*: less than 30 min Specific Discharge Activities: Specific discharge activities: educating and/or supporting family/caregiver Coding Level of Care Code Acute Mixing And Molding Machine Operator for Chg Fwd Diagnoses 38 weeks gestation of Z3A.38 Seizure disorder during in third trimester O99.353; G40.909 Proteinuria R80.9
[2021-11-04] MEDS: docusate sodium 100 mg Capsule PO (09:16)
[2021-11-04] MEDS: divalproex ER 500 mg Tablet (24H) 1000 MG PO (09:16)
[2021-11-04] MEDS: ibuprofen 800 mg tablet PO (09:16)
[2021-11-04] MEDS: prenatal vitamin Capsule 1 CAP PO (09:16)
[2021-11-04 09:40] VITALS: BP 135/85; PULSE 82; RESP 16; TEMP 36.9; O2SAT 99
[2021-11-04 09:50] VITALS: BP 135/85; PULSE 82; RESP 16; TEMP 36.9; O2SAT 99
== END 2021-11-04 10:00 | disposition home or self-care (01) | DRG 806 ==
LOC: OPOB 14:22 → OBGYN 14:22
PROVIDERS: Admitting Provider Family Medicine; PCP Family Medicine; Visit Provider Family Medicine
DX: O12.14 Gestational proteinuria, complicating childbirth (principal); O99.354 Diseases of the nervous system complicating childbirth; Z37.0 Single live birth; G40.909 Epilepsy, unspecified, not intractable, without status epilepticus; O69.81X0 Labor and delivery complicated by cord around neck, without compression, not applicable or unspecified; O89.4 Spinal and epidural anesthesia-induced headache during the puerperium; Z3A.38 38 weeks gestation of pregnancy
CPT/HCPCS: 12345; 36415; 36416; 51702; 59025; 59409; 80164; 81001; 82570; 82962; 84156; 85025; 85027; 90471; 90686; 96374; 99211; J2405; J2795; J3010; J3490

== ENCOUNTER → 2021-12-03 09:03 | Outpatient (BNVA) | payer BC, MEDICAID, SELFPAY | PROVIDERS: PCP Family Medicine; Visit Provider Specialist | DX: G40.409 Other generalized epilepsy and epileptic syndromes, not intractable, without status epilepticus (principal) | CPT/HCPCS: 99214 ==

== ENCOUNTER → 2022-05-06 09:08 | Outpatient (BNVA) | payer BC, MEDICAID, SELFPAY | PROVIDERS: PCP Family Medicine; Visit Provider Specialist | DX: G40.909 Epilepsy, unspecified, not intractable, without status epilepticus (principal) | CPT/HCPCS: 99213; 99214 ==

== ENCOUNTER 2023-10-27 09:42 | Outpatient (CLI) | payer MEDICAID, SELFPAY ==
[2023-10-27 12:16] LABS: Valproic Acid Level 92.4 ug/mL (50-100)
== END 2023-10-27 09:43 | disposition home or self-care (01) ==
LOC: LAB 09:42
PROVIDERS: Visit Provider Specialist
DX: G40.309 Generalized idiopathic epilepsy and epileptic syndromes, not intractable, without status epilepticus (principal); G40.A09 Absence epileptic syndrome, not intractable, without status epilepticus
CPT/HCPCS: 36415; 80164

== ENCOUNTER 2024-04-05 18:20 | Outpatient (CLI) | payer OTHER, SELFPAY ==
[2024-04-05] VITALS (30 sets, daily range): BP systolic 124–141; BP diastolic 69–80; PULSE 71–90; TEMP 35.4; O2SAT 94–98; BMI 42.2
[2024-04-05 19:46] LABS: Basophils % 0.4 %; Eosinophils # 0.1 10^3/uL (0.0-0.8); Eosinophils % 0.8 %; Hematocrit 35.5 % (36-47); Lymphocytes # 2.4 10^3/uL (0.8-4.8); Lymphocytes % 23.6 %; Mean Corpuscular HGB Conc 34.6 g/dL (30-55); Mean Corpuscular Hemoglobin 31.7 pg (27-33); Mean Corpuscular Volume 91.5 fl (85-98); Mean Platelet Volume 10.3 fL (7.4-10.4); Monocytes # 0.7 10^3/uL (0.2-0.9); Monocytes % 6.5 %; Neutrophils # 6.89 10^3/uL (1.8-7.7); Neutrophils % 68.1 %; Nucleated Red Blood Cells % 0 %; Platelet Count 189 10^3/cmm (157-399); Red Blood Count 3.88 10^6/uL (3.85-5.65); Red Cell Distribution Width 12.9 % (12.1-15.1); White Blood Count 10.12 10^3/uL (3.29-11.43)
[2024-04-05] MEDS: propranolol 20 mg Tablet PO (19:54)
[2024-04-05 20:08] LABS: Alanine Aminotransferase < 5 U/L (0-33); Albumin Level 3.3 g/dL (3.5-5.2); Alkaline Phosphatase 70 U/L (35-105); Anion Gap 14.8 (5-19); Aspartate Amino Transferase 12 U/L (0-32); Blood Urea Nitrogen 6 mg/dL (6-20); Carbon Dioxide 21 mmol/L (22-29); Chloride 106 mmol/L (98-107); Creatinine Clr Calc Pharmacy 325.7066; Glomerular Filtration Rate 271.1 mL/min (90-130); Glucose 114 mg/dL (65-115); Osmolality Calculated 284 mOsm/kg (285-295); Potassium 3.8 mmol/L (3.5-5.1); Sodium 138 mmol/L (136-145); Total Bilirubin 0.2 mg/dL (0.15-1.2); Total Protein 6.3 g/dL (6.6-8.7)
== END 2024-04-05 20:40 | disposition home or self-care (01) ==
LOC: OPOB 18:26 → OBGYN 18:27
PROVIDERS: Visit Provider Family Medicine
DX: O26.899 Other specified pregnancy related conditions, unspecified trimester (principal); Z3A.00 Weeks of gestation of pregnancy not specified; R10.9 Unspecified abdominal pain
CPT/HCPCS: 36415; 59025; 80053; 85025; 99211

== ENCOUNTER 2024-05-19 11:10 | Outpatient (CLI) | payer OTHER, SELFPAY ==
[2024-05-19] VITALS (8 sets, daily range): BP systolic 131–159; BP diastolic 61–82; PULSE 89–107; BMI 42.0
[2024-05-19 12:45] LABS: Basophils % 0.2 %; Eosinophils % 0.5 %; Hematocrit 36.2 % (36-47); Lymphocytes % 23.3 %; Mean Corpuscular HGB Conc 34.5 g/dL (30-55); Mean Corpuscular Volume 89.8 fl (85-98); Mean Platelet Volume 10.4 fL (7.4-10.4); Monocytes # 0.7 10^3/uL (0.2-0.9); Monocytes % 8.3 %; Neutrophils # 5.63 10^3/uL (1.8-7.7); Neutrophils % 66.8 %; Nucleated Red Blood Cells % 0 %; Platelet Count 182 10^3/cmm (157-399); Red Blood Count 4.03 10^6/uL (3.85-5.65); Red Cell Distribution Width 12.9 % (12.1-15.1); White Blood Count 8.44 10^3/uL (3.29-11.43)
[2024-05-19 12:48] LABS: Valproic Acid Level 53.5 ug/mL (50-100)
[2024-05-19 13:01] LABS: Alanine Aminotransferase 6 U/L (0-33); Albumin Level 3.4 g/dL (3.5-5.2); Alkaline Phosphatase 99 U/L (35-105); Aspartate Amino Transferase 12 U/L (0-32); Blood Urea Nitrogen 7 mg/dL (6-20); Calcium 8.6 mg/dL (8.5-10.5); Carbon Dioxide 21 mmol/L (22-29); Chloride 104 mmol/L (98-107); Globulin 3.1 g/dL (1.3-4.6); Glomerular Filtration Rate 194.5 mL/min (90-130); Glucose 101 mg/dL (65-115); Osmolality Calculated 280 mOsm/kg (285-295); Sodium 136 mmol/L (136-145); Total Bilirubin 0.2 mg/dL (0.15-1.2); Total Protein 6.5 g/dL (6.6-8.7); Uric Acid 5.2 mg/dL (2.4-5.7)
[2024-05-19 13:02] LABS: Urine Creatinine 198 mg/dL (28-217); Urine Protein Random 19 mg/dL
[2024-05-19 13:08] LABS: Urine Appearance Cloudy (CLEAR); Urine Color Yellow (Yellow)
[2024-05-19 13:09] LABS: Add Urine Culture? No; Add Urine Microscopic? YES; Bacteria Urine 2+ /hpf; Bilirubin Urine Neg (Negative); Blood Urine Neg (Negative); Glucose Urine UA Trace (Normal); Ketones Urine 1+ (Negative); Leukocyte Esterase Urine 1+ (Negative); Mucus Urine 1+ /hpf; Nitrate Urine Negative (Negative); Protein Urine Neg (Negative); RBC Urine 0-4 /hpf (0-2); Urobilinogen Urine 1 mg/dL (Negative); pH Urine 7 (5-7)
--- NOTE | 2024-05-19 13:35 | PC.NURSE ---
PATIENT EDUCATED TO CHECK BP DAILY, FOLLOW UP WITH DR. GARCÍA IN OFFICE NEXT WEEK AND PROVIDED WRITTEN EDUCATION ON HYPERTENSION AND PRE-E DURING
== END 2024-05-19 13:37 | disposition home or self-care (01) ==
LOC: OPOB 11:16 → OBGYN 11:17
PROVIDERS: Family Medicine; Visit Provider Family Medicine
DX: O16.9 Unspecified maternal hypertension, unspecified trimester (principal); Z3A.00 Weeks of gestation of pregnancy not specified
CPT/HCPCS: 36415; 59025; 80053; 80164; 81001; 82570; 84156; 84550; 85025; 99211

== ENCOUNTER 2024-05-29 14:00 | Outpatient (CLI) | payer OTHER, SELFPAY ==
[2024-05-29] VITALS (30 sets, daily range): BP systolic 105–151; BP diastolic 58–88; PULSE 84–139; RESP 18; O2SAT 93–98; BMI 41.3
[2024-05-29 16:03] LABS: Valproic Acid Level 52.7 ug/mL (50-100)
[2024-05-29 17:06] LABS: Basophils % 0.2 %; Eosinophils % 0.3 %; Hematocrit 38.3 % (36-47); Lymphocytes # 2.1 10^3/uL (0.8-4.8); Lymphocytes % 23.6 %; Mean Corpuscular HGB Conc 33.9 g/dL (30-55); Mean Corpuscular Hemoglobin 30.5 pg (27-33); Mean Corpuscular Volume 89.9 fl (85-98); Mean Platelet Volume 10.2 fL (7.4-10.4); Monocytes # 0.6 10^3/uL (0.2-0.9); Monocytes % 6.5 %; Neutrophils # 6.09 10^3/uL (1.8-7.7); Neutrophils % 68.8 %; Nucleated Red Blood Cells % 0 %; Platelet Count 192 10^3/cmm (157-399); Red Blood Count 4.26 10^6/uL (3.85-5.65); White Blood Count 8.86 10^3/uL (3.29-11.43)
[2024-05-29 17:16] LABS: Bilirubin Urine Neg (Negative); Blood Urine Neg (Negative); Glucose Urine UA Norm (Normal); Ketones Urine 1+ (Negative); Leukocyte Esterase Urine 2+ (Negative); Nitrate Urine Negative (Negative); Protein Urine Neg (Negative); Specific Gravity, Urine 1.015 (1.005-1.030); Urine Appearance Slightly Cloudy (CLEAR); Urine Color Yellow (Yellow); Urobilinogen Urine Norm (Negative); pH Urine 7 (5-7)
[2024-05-29 17:17] LABS: Add Urine Culture? No; Add Urine Microscopic? YES; Bacteria Urine 2+ /hpf; WBC Urine RARE /hpf (0-5)
[2024-05-29 17:24] LABS: Alanine Aminotransferase 8 U/L (0-33); Albumin Level 3.4 g/dL (3.5-5.2); Alkaline Phosphatase 107 U/L (35-105); Aspartate Amino Transferase 12 U/L (0-32); Blood Urea Nitrogen 5 mg/dL (6-20); Calcium 8.2 mg/dL (8.5-10.5); Carbon Dioxide 20 mmol/L (22-29); Chloride 105 mmol/L (98-107); Creatinine Clr Calc Pharmacy 250.5034; Glomerular Filtration Rate 194.5 mL/min (90-130); Glucose 84 mg/dL (65-115); Osmolality Calculated 282 mOsm/kg (285-295); Sodium 138 mmol/L (136-145); Total Bilirubin 0.2 mg/dL (0.15-1.2); Total Protein 6.4 g/dL (6.6-8.7); Uric Acid 5.5 mg/dL (2.4-5.7)
[2024-05-29] MEDS: valproic acid inj 500 MG in sodium chloride 0.9% 50 ML 55 MG IV (17:33)
[2024-05-29 17:42] LABS: Urine Creatinine 44 mg/dL (28-217); Urine Protein Random 6 mg/dL
[2024-05-29 17:43] LABS: UPRO/UCREAT Ratio 0.14 mg/mg CR
== END 2024-05-29 18:49 | disposition home or self-care (01) ==
LOC: OPOB 14:01 → OBGYN 14:02
PROVIDERS: Visit Provider Family Medicine
DX: O26.899 Other specified pregnancy related conditions, unspecified trimester (principal); Z3A.00 Weeks of gestation of pregnancy not specified; R56.9 Unspecified convulsions
CPT/HCPCS: 36415; 59025; 80053; 80164; 81001; 82570; 84156; 84550; 85025; 99211; J3490

== ENCOUNTER 2024-06-04 19:00 | Inpatient (IN) | payer OTHER, SELFPAY ==
[2024-06-04] VITALS (63 sets, daily range): BP systolic 102–162; BP diastolic 56–99; PULSE 72–130; RESP 16; O2SAT 88–100; BMI 41.6
[2024-06-04 12:59] LABS: Basophils % 0.2 %; Eosinophils # 0.1 10^3/uL (0.0-0.8); Eosinophils % 0.7 %; Hematocrit 39.8 % (36-47); Lymphocytes % 23.8 %; Mean Corpuscular HGB Conc 34.2 g/dL (30-55); Mean Corpuscular Hemoglobin 30.6 pg (27-33); Mean Corpuscular Volume 89.4 fl (85-98); Mean Platelet Volume 10.4 fL (7.4-10.4); Monocytes # 0.6 10^3/uL (0.2-0.9); Monocytes % 7.6 %; Neutrophils # 5.54 10^3/uL (1.8-7.7); Neutrophils % 67.2 %; Nucleated Red Blood Cells % 0 %; Platelet Count 184 10^3/cmm (157-399); Red Blood Count 4.45 10^6/uL (3.85-5.65); Red Cell Distribution Width 12.9 % (12.1-15.1); White Blood Count 8.26 10^3/uL (3.29-11.43)
--- NOTE | 2024-06-04 12:59 | P.HP_ITS ---
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 She has known epileptic seizures. She had 1 earlier in her but has not had any until the when she had last week. Her preeclamptic profile was within normal limits. She is currently on valproic acid to treat her seizures. She had her valproic acid level tested in the hospital and was found to be 56. We increased her dose of valproic acid as well as give her a bolus at that time. When I checked her back in my office several days later her valproic acid level had dropped. We once again increased her dose so she was now taking 3000 mg a day rather than 2000 she been taking previously. Despite that, she had another seizure again today. Is a tonic- clonic seizure. She does not recall the specifics, but per family had a seizure. Review of Systems 2 General: Reports: 10 or more systems reviewed and unremarkable except in HPI and below Const: Reports: fatigue; Denies: fever(s) Eyes: Denies: change in vision Card: Denies: chest pain Musc: Reports: back pain Neuro: Reports: seizure-like activity Jose/Lymph: Denies: easy bruising Medications/Allergies Home Medications Medication Instructions Recorded Confirmed Last Taken Type divalproex 500 mg tablet,extended 1,500 mg (3 x 500 mg) PO DAILY 3 10/18/23 05/19/24 05/19/24 Rx release 24 hr months #300 tabs Allergies Allergy/AdvReac Type Severity Reaction Status Date / Time No Known Allergies Allergy Verified 04/05/24 16:20 PFSH F[employer] 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 [place] [facility] [place] Family History Other Diabetes Social History Smoking and tobacco/nicotine status: never used tobacco/nicotine Alcohol intake: never Substance/Drug Use: never Current gender identity: Female Other Female Reproductive History: Hx Age of Menarche: 11 Duration of menses: 3-5 days Cycle Length: 28 to 30 days Menstrual flow: normal/abnormal: normal History History History 2 3 Term 1 0 Miscarriages/Ectopic 1 Living Children 1 Vitals/I&O/Wt Last Vital Signs Pulse 96 06/04/24 12:16 BP 132/80 06/04/24 12:16 Physical Exam 2 Const: COMMON NORMALS: patient oriented x3 and alert HENMT: COMMON NORMALS: moist oral mucous membranes HEAD & SCALP: normal to inspection Chest: COMMONS NORMALS: normal inspection of the chest Resp: COMMON NORMALS: clear to auscultation bilaterally AUSCULTATION: clear to auscultation bilaterally Cardio: COMMON NORMALS: regular rate and regular rhythm RATE: regular rate RHYTHM: regular rhythm GI: INSPECTION: Yes normal to inspection and Yes other (Gravid) Extremity: COMMON NORMALS: normal to inspection GENERAL: Yes edema (Trace) Neuro: COMMON NORMALS: patient oriented x3, moves all extremities and no sensory deficits noted SENSORIUM/ORIENTATION: Yes alert Psych: COMMON NORMALS: mental status grossly normal Skin: COMMON NORMALS: no rashes or lesions noted GENERAL SKIN EXAM: no rashes or lesions noted Data 06/04/24 12:25 Results Labs OB ([facility]): 2 Obstetrics US 09/18/21 Hct 39.8 % (36-47) 06/04/24 Hgb 13.60 g/dL (11.27-16.99) 06/04/24 Rho(D) Type Positive 08/28/20 Plt Count 184 10^3/cmm (157-399) 06/04/24 Hep Bs Antibody < 3.5 (11.5-1000) L 10/19/23 Rubella IgG Antibody 87.9 IU/mL (0.0-10.0) H 10/19/23 Uric Acid 5.5 mg/dL (2.4-5.7) 05/29/24 VZV IgG Antibody 608.80 index 10/19/23 Ser , Semi-Qnt 3788.00 mIU/mL 08/29/20 A&P Assessment and plan (1) Primary generalized epilepsy, major: (2) 38 weeks gestation of : This is a second seizure the patient has had within a week. This is occurred despite aggressive change of her valproic acid levels. Her risk of seizing again is high, since we are going to have to adjust her doses and recheck her levels in several days before we can know if she is in the adequate range or not. Since it appears that her valproic acid levels are consistent this stage and her tendency toward seizure is high, the benefits of waiting to deliver do not outweigh the potential risks to the mother and the baby. As such we are going to induce the patient at this time. I discussed this with the patient. We discussed the risks of induction as well as the risks of recurrent seizures. Together, we decided that we will proceed with the induction at this time. They have no further questions. Attestations 2 Medical Necessity Statement*: I anticipate routine induction and delivery. At this time I anticipate a vaginal delivery. Coding Level of Care Code Acute Code for Chg Fwd Diagnoses Primary generalized epilepsy, major G40.309 38 weeks gestation of Z3A.38
[2024-06-04 13:16] LABS: Valproic Acid Level 56.2 ug/mL (50-100)
[2024-06-04] MEDS: miSOPROStol 100 mcg tablet 25 MCG VAGINAL ×2 (13:41→17:46)
[2024-06-04] MEDS: valproic acid inj 500 MG in sodium chloride 0.9% 50 ML 55 MG IV (14:05)
[2024-06-04] MEDS: divalproex ER 500 mg Tablet (24H) 1000 MG PO ×2 (15:54→21:42)
[2024-06-04] MEDS: fentaNYL 50 mcg/mL INJ 2mL IVP (20:12)
[2024-06-04] MEDS: lactated ringers 1,000 ML 999 ML IV (21:35)
[2024-06-04] MEDS: ROPivacaine syringe 100 MG/50 ML SYRINGE 10 MG EPIDURAL (23:00)
--- NOTE | 2024-06-04 23:00 | P.ANESASSM_ITS ---
Pre-Anesthetic Assessment Height/Weight: Height 1.6 m Weight 106.594 kg Pulse Resp BP Pulse Ox O2 Del Method 97 16 123/59 98 Room Air 06/04/24 22:58 06/04/24 20:12 06/04/24 22:58 06/04/24 22:58 06/04/24 12:46 Preop Diagnosis: IUP labor epidural Familial anesthetic complications: none Was Beta Frances taken within 24 hours: N/A Was Clonidine taken within 24 hours: N/A Social No alcohol and No tobacco Exam alert and oriented x 3 Airway Submandibular: within normal limits Cervical ROM: within normal limits Mallampati: Class II Dentition: full Pulmonary None reported CV/HEM None reported None reported Hepatic None reported GI None reported Metabolic Morbid Obesity [facility] [place] None reported Neuropsych Seizure (epilepsy. last seizure this AM- brought on by late - induced due to seizure.) Anesthetic Plan ASA status: 3 Anesthesia: Anesthesia Evaluation and Regional (specify below) Medications/Allergies Home Medications Medication Instructions Recorded Confirmed Last Taken Type divalproex 500 mg tablet,extended 1,000 mg PO TID 06/04/24 06/04/24 06/04/24 07:00 History release 24 hr no.58-iron bisglycinate 1 cap PO DAILY 06/04/24 06/04/24 06/04/24 07:00 History 10 mg iron-folic acid 400 mcg capsule Allergies Allergy/AdvReac Type Severity Reaction Status Date / Time No Known Allergies Allergy Verified 04/05/24 16:20 Current Medications Generic Name Dose Route Start Last Admin Trade Name Freq PRN Reason Stop Dose Admin Divalproex Sodium 1,000 mg 06/04/24 15:00 06/04/24 21:42 Divalproex Er 500 Mg Tablet (24h) PO 1,000 mg TID MIKE Administration Fentanyl 25 - 100 mcg 06/04/24 12:55 06/04/24 20:12 Fentanyl 50 Mcg/Ml Inj 2ml IVP 25 mcg Q1H PRN Administration SEVERE PAIN Lactated Ringer's 1,000 mls @ 999 mls/hr 06/04/24 21:40 06/04/24 21:35 Lactated Ringers IV 999 mls/hr .Q1H1M PRN Administration See label comments PFSH Anesthesia Medical History Epilepsy Surgical History S/P dilation and curettage (08/29/20) D&C with suction for treatment of miscarriage. [place] [facility] [place] Family History Other Diabetes Social History Smoking and tobacco/nicotine status: never used tobacco/nicotine Alcohol intake: never Substance/Drug Use: never Current gender identity: Female Female Reproductive History : 3 Data Anesthesia 06/04/24 12:25 Short CBC 06/04/24 Range/Units 12:25 WBC 8.26 (3.29-11.43) 10^3/uL Hgb 13.60 (11.27-16.99) g/dL Hct 39.8 (36-47) % MCV 89.4 (85-98) fl Plt Count 184 (157-399) 10^3/cmm Neut % (Auto) 67.2 % Neut # (Auto) 5.54 (1.8-7.7) 10^3/uL Blood Bank 06/04/24 12:25 Blood Type O Positive Rho(D) Type Rh positive Antibody Screen Negative Cardiac Studies: 2 No Data to Display
--- NOTE | 2024-06-04 23:02 | P.ANES_ITS ---
Anesthesia Procedures Procedure/Date: 06/04/24 Epidural: Time Out Performed: Yes Consents Signed: Procedure Consent Consent: from patient, risks and benefits reviewed and patient agrees to proceed Lumbar Level: L3-L4 Epidural position: sitting Epidural procedure: sterile prep of area, 1% lidocaine to numb the area, 18 g needle, negative for paresthesia passed, neg for paresthesia, test dose given, 1.5% xylocaine 1:200k epi, placed PCEA, no systemic response, sterile dressing applied, L.U.D. no apparent complications and 0.2% Ropiavacaine @ mls/hr (13) Additional Comments: 1st attempt: ALINA at 8, taped at 14 at sk in. negative aspiration. patient did not get any pain relief. 2nd attempt ALINA at 6, taped at 13 at ski n. negative aspiration. patient states contractions are much better
[2024-06-05] VITALS (137 sets, daily range): BP systolic 92–142; BP diastolic 51–93; PULSE 66–129; RESP 16–18; TEMP 35.8–36.9; O2SAT 96–99
[2024-06-05] MEDS: lactated ringers 1,000 ML 999 ML IV (00:12)
[2024-06-05] MEDS: ePHEDrine 50 mg/mL Inj 10 MG IVP ×2 (00:17→00:41)
[2024-06-05] MEDS: ROPivacaine syringe 100 MG/50 ML SYRINGE 10 MG EPIDURAL ×3 (03:17→11:53)
[2024-06-05] MEDS: oxytocin 30 UNIT/500 ML BAG IV (05:17)
[2024-06-05] MEDS: dextrose 5%-lactated ringers 1,000 ML 125 ML IV (05:17)
[2024-06-05] MEDS: divalproex ER 500 mg Tablet (24H) 1000 MG PO ×3 (09:03→20:53)
[2024-06-05] MEDS: ondansetron 2 mg/ML SDV 2 mL 4 MG IVP (10:16)
--- NOTE | 2024-06-05 13:12 | P.PCNOB_ITS ---
Delivery Note: Date of delivery: June 05, 2024 Pre-delivery diagnoses: 1. 23-year-old 3 para 1-0-1-1 a t 38 weeks estimated gestational age 2. Seizure disorder with 2 seizures in the past week Post-delivery diagnoses: Status post spontaneous vaginal delivery Procedure: Spontaneous vaginal delivery Delivering Physician: Vidal Lee Estimated blood loss (mL): 50 Pre-Delivery Course: The patient presented to the hospital after having a seizure at home. We elected to proceed with an induction. She was placed on Cytotec 25 mcg x 2. Pitocin was initiated. An amniotomy was performed. An epidural was placed prior to the Pitocin or amniotomy.. The patient progressed to complete without difficulty. Delivery: DELIVERY: The patient progressed to complete without difficulty. She delivered a male with a weight of 6 pounds 9 ounces with Apgars of 9, 9. The baby was delivered from the SARIAH position and placed on the mother's abdomen. The cord was then clamped and cut. There was no nuchal cord. There was no meconium. The placenta and 3 vessel cord were delivered intact shortly thereafter. The perineum and vaginal vault were carefully examined. A superficial vaginal wall laceration was noted on the left vaginal wall near the labia minora. Repair was not required. Both the mother and the baby were in stable condition. Post-Delivery Status: Good History History History 3 Term 1 0 Miscarriages/Ectopic 1 Living Children 1 A&P Assessment and plan (1) 38 weeks gestation of : (2) Primary generalized epilepsy, major: (3) Spontaneous vaginal delivery: Coding Level of Care Code Acute Code for Chg Fwd Diagnoses 38 weeks gestation of Z3A.38 Primary generalized epilepsy, major G40.309 Spontaneous vaginal delivery O80
[2024-06-05] MEDS: lanolin oint 7 gm 1 APPLIC TOPICAL (15:07)
[2024-06-05] MEDS: ibuprofen 800 mg tablet PO ×2 (15:07→20:53)
[2024-06-05] MEDS: benzocaine-menthol 78 gm Canister 1 SPRAY TOPICAL (15:07)
[2024-06-05] MEDS: acetaminophen 325 mg Tablet PO (16:44)
[2024-06-05] MEDS: docusate sodium 100 mg Capsule PO (20:53)
[2024-06-06 01:02] LABS: Hematocrit 33.8 % (36-47); Mean Corpuscular Hemoglobin 30.8 pg (27-33); Mean Corpuscular Volume 90.6 fl (85-98); Mean Platelet Volume 10.6 fL (7.4-10.4); Platelet Count 159 10^3/cmm (157-399); Red Blood Count 3.73 10^6/uL (3.85-5.65); White Blood Count 11.03 10^3/uL (3.29-11.43)
[2024-06-06 04:10] VITALS: BP 132/80; PULSE 76; RESP 16; TEMP 36.8; O2SAT 98
--- NOTE | 2024-06-06 07:38 | P.DS_ITS ---
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 She was induced using Cytotec, Pitocin, and amniotomy. An epidural was placed. She progressed to complete and had an unremarkable delivery of a healthy appearing infant. Her course was unremarkable. Her baby did have some respiratory difficulty, but her hospital course was otherwise without difficulty. Her bleeding was within normal limits. Her pain was well-controlled. She did not have any seizures. There were no concerns. Information Peripartum Data: Delivery Method: Vaginal Physical Exam Narrative: The patient is alert. She appears comfortable. Her heart has a regular rate and rhythm with no murmurs appreciated. Lungs are clear to auscultation bilaterally. Her fundus is firm and below the umbilicus. Urinary Catheter Management: [place]: Cath Placed During This Visit: yes, but has since been removed by the nurse Reason for Continuing Indwelling Catheter: Decision to DC Catheter Urinary Catheter Date of Insertion: 06/05/24 Urinary Catheter Time of Insertion: 00:20 Date Urinary Catheter Removed: 06/05/24 Time Urinary Catheter Discontinued: 12:30 History History History 3 Term 2 0 Miscarriages/Ectopic 1 Living Children 2 Discharge Data Studies Completed and Pending Laboratory Results WBC 11.03 10^3/uL (3.29-11.43) 06/06/24 00:55 RBC 3.73 10^6/uL (3.85-5.65) L 06/06/24 00:55 Hgb 11.50 g/dL (11.27-16.99) 06/06/24 00:55 Hct 33.8 % (36-47) L 06/06/24 00:55 MCV 90.6 fl (85-98) 06/06/24 00:55 MCH 30.8 pg (27-33) 06/06/24 00:55 MCHC 34.0 g/dL (30-55) 06/06/24 00:55 RDW 13.0 % (12.1-15.1) 06/06/24 00:55 Plt Count 159 10^3/cmm (157-399) 06/06/24 00:55 MPV 10.6 fL (7.4-10.4) H 06/06/24 00:55 Neut % (Auto) 67.2 % 06/04/24 12:25 Lymph % (Auto) 23.8 % 06/04/24 12:25 [place] % (Auto) 7.6 % 06/04/24 12:25 Eos % (Auto) 0.7 % 06/04/24 12:25 Baso % (Auto) 0.2 % 06/04/24 12:25 Neut # (Auto) 5.54 10^3/uL (1.8-7.7) 06/04/24 12:25 Lymph # (Auto) 2.0 10^3/uL (0.8-4.8) 06/04/24 12:25 [place] # (Auto) 0.6 10^3/uL (0.2-0.9) 06/04/24 12:25 Eos # (Auto) 0.1 10^3/uL (0.0-0.8) 06/04/24 12:25 Baso # (Auto) 0.0 10^3/uL (0.0-0.1) 06/04/24 12:25 Nucleated RBC % (auto) 0 % 06/04/24 12:25 Nucleated RBCs # 0.0 /100WBC 06/04/24 12:25 Valproic Acid 56.2 ug/mL (50-100) 06/04/24 12:25 Blood Type O Positive 06/04/24 12:25 Rho(D) Type Rh positive 06/04/24 12:25 Antibody Screen Negative 06/04/24 12:25 Vitals Last Vital Signs Temp 98.3 F 06/06/24 04:10 Pulse 76 06/06/24 04:10 Resp 16 06/06/24 04:10 BP 132/80 06/06/24 04:10 Pulse Ox 98 06/06/24 04:10 O2 Del Method Room Air 06/06/24 04:10 Results Labs OB ([facility]): Obstetrics US 09/18/21 Blood Type O Positive 06/04/24 Antibody Screen Negative 06/04/24 Hct 33.8 % (36-47) L 06/06/24 Hgb 11.50 g/dL (11.27-16.99) 06/06/24 Rho(D) Type Rh positive 06/04/24 Plt Count 159 10^3/cmm (157-399) 06/06/24 Hep Bs Antibody < 3.5 (11.5-1000) L 10/19/23 Rubella IgG Antibody 87.9 IU/mL (0.0-10.0) H 10/19/23 Uric Acid 5.5 mg/dL (2.4-5.7) 05/29/24 VZV IgG Antibody 608.80 index 10/19/23 Ser , Semi-Qnt 3788.00 mIU/mL 08/29/20 Discharge Plan Discharge Patient Disposition: Home Condition: Stable Prescriptions: New ibuprofen 800 mg Tablet 800 mg PO TID Qty: 45 0RF Continued PNV comb no.58-iron bisgly-FA 10-400 mg-mcg Capsule 1 cap PO DAILY Changed divalproex 500 mg tablet extended release 24 hr 1,000 mg PO BID Qty: 120 0RF Rx Instructions: 1000 mg PO three times a day Discharge Orders: Discharge Order (Routine); Ordered 06/06/24 Ordered By: Vidal Lee Referrals: Vidal Lee MD [Physician] - 06/12/24 8:50 am (* Your visit with Dr. Lee is on Wednesday June 12, 2024 at 8:50am) Discharge Diet: Usual diet Discharge Activity: Limit activity as instructed Patient Instructions: Depression (DC), Bleeding (DC), Preeclampsia and Eclampsia After Delivery (GEN), Hemorrhage (DC), OB Discharge Report, OB Food/Drug Interaction Guide, OB Care at Home, Opioid Safety, OB Home Care, OB Vaginal Deliveries Discharge Attestations [employer]PER[employer]OR Time Spent in Discharge Care*: less than 30 min Specific Discharge Activities: Specific discharge activities: educating patient (The patient needs to have a valproic acid level done this following week.) Coding Level of Care Code Acute Code for Chg Fwd Diagnoses 38 weeks gestation of Z3A.38 Primary generalized epilepsy, major G40.309 Spontaneous vaginal delivery O80
--- NOTE | 2024-06-06 08:00 | ANE.PACU2 ---
Inpatient post-anesthesia follow up: Airway intact: Yes Vital signs: Temperature 98.3 F Pulse Rate 72 Respiratory Rate 17 Blood Pressure 107/79 Pulse Oximetry 98 Oxygen Delivery Me thod Room Air Oxygen Flow Rate Fraction of Inspir ed Oxygen Hydration adequate: Yes Nausea and vomiting: No Pain level: 1 Mental status: Baseline Epidural Start/End: Epidural Start Date: 06/04/24 Epidural Start Time: 22:28 Epidural End Date: 06/05/24 Epidural End Time: 14:45
[2024-06-06] MEDS: ibuprofen 800 mg tablet PO (09:00)
[2024-06-06] MEDS: divalproex ER 500 mg Tablet (24H) 1000 MG PO (09:00)
[2024-06-06] MEDS: PRENATAL VIT NO.130/IRON/FOLIC 1 EACH TABLET PO (09:00)
[2024-06-06] MEDS: docusate sodium 100 mg Capsule PO (09:00)
[2024-06-06 12:17] VITALS: BP 107/79; PULSE 72; RESP 17; TEMP 36.8; O2SAT 98
[2024-06-06 12:18] VITALS: BP 107/79; PULSE 72; RESP 17; TEMP 36.8; O2SAT 98
[2024-06-06 12:28] LABS: Valproic Acid Level 79.5 ug/mL (50-100)
== END 2024-06-06 12:20 | disposition home or self-care (01) | DRG 807 ==
LOC: OPOB 06-05 03:36 → OBGYN 06-05 03:36
PROVIDERS: Admitting Provider Family Medicine; Visit Provider Family Medicine
DX: O99.354 Diseases of the nervous system complicating childbirth (principal); Z37.0 Single live birth; G40.409 Other generalized epilepsy and epileptic syndromes, not intractable, without status epilepticus; Z3A.38 38 weeks gestation of pregnancy
CPT/HCPCS: 36415; 51702; 59025; 59409; 80164; 85025; 85027; 86850; 86900; 96374; 96376; 98960; 99211; J2405; J2590; J2795; J3010; J3490; J7120; J7121